=== PATIENT | male | born 1975 | race African-American/Black ===

== ENCOUNTER 2016-11-02 07:57 | Emergency (ER) | payer MEDICAID ==
[2016-11-02 08:05] VITALS: BP 141/80
--- NOTE | 2016-11-02 08:21 | ERNOTE ---
ENT HPI Date of Service: 11/02/16 Presenting Symptoms: dental pain Source: patient Exam Limitations: no limitations - Immun/Allergies/Home Medications Immunizations: IMMUNIZATION HX Immunizations Up to Date Yes History of Influenza Vaccine No Hx Pneumococcal Vaccination No Allergies/Adverse Reactions: Allergies Allergy/AdvReac Type Severity Reaction Status Date / Time No Known Allergies Allergy Verified 11/02/16 08:05 Home Medications: HOME MEDICATIONS Penicillin V Potassium [Pen-Vee K] 500 mg PO Q8H #30 tab 11/02/16 [Last Taken Unknown] Tramadol HCl [Rybix Odt] 50 mg PO TID PRN #10 tab.rapdis 11/02/16 [Last Taken Unknown] - History of Present Illness Narrative: Patient has been having 3 days of left upper molar pain. Posterior molar on the left. This pain has not been relieved by ambasol. No trauma. No fever or vomiting. No trouble breathing or swallowing. Has not been able to get into the dentist for this. No other compaints. Pain can be severe. Severity: Present: mild ENT Location: Present: dental Prearrival Treatment: Present: other - ambasol Modifying Factors - Improves: Reports: nothing Modifying Factors - Worsens: Reports: nothing Associated Symptoms - ENT: Reports: tooth pain. Denies: fever, cough, voice change, sore throat, jaw swelling Review of Systems - Review of Systems Constitutional: Absent: fever ENT: Present: See HPI Respiratory: Absent: shortness of breath Cardiology: Absent: chest pain Gastrointestinal/Abdominal: Absent: vomiting - Patient's Past Medical History Patient History - Medical: GERD Patient History - Cardiac/Respiratory: No pertinent hx Patient History - Cancer: No Hx of Cancer Patient History - Surgical Procedures: No surgical history Patient History - Other: None - Social History Living Situations: home Smoking Status: Never smoker Alcohol Use: none Drug Use: none - Immunizations Immunizations Up to Date: Yes Hx Pneumococcal Vaccination: No History of Influenza Vaccine: No Physical Exam - Physical Exam General Appearance: Present: alert, no apparent distress Eye Exam: Normal inspection: bilateral, PERRL: bilateral Ears, Nose, Throat: Present: other - Patient had completely reproducible tenderness left upper molar. Threre is some milf gingival erythema. Caries at gumline. No abscess I can Identify. no Festus's angina, no ANUG.. 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 Vital Signs: Vital Signs 11/02/16 08:01 Temperature 35.0 C L Pulse Rate 60 Respiratory 16 Rate Blood Pressure 141/80 O2 Sat by Pulse 99 Oximetry - Progress/Reassessment Chief Complaint: Dental Problem Progress Note-Subjective: 11/02/16 08:16 Patient needs to see dentist JACOB. No ANUG or Festus's angina. Stable. ABx, pain meds. Departure Clinical Impression: Pain, dental - Departure Disposition: Home self-care Condition: Stable Instructions: Dental Caries Additional Instructions: See Dentist as soon as possible. No driving with pain medications. Return for fever, trouble breathing or swallowing or if your condition worsens or changes in any way. Prescriptions: Penicillin V Potassium [Pen-Vee K] 500 mg PO Q8H #30 tab Tramadol HCl [Rybix Odt] 50 mg PO TID PRN #10 tab.rapdis PRN Reason: Pain
== END 2016-11-02 08:28 | disposition home or self-care (01) ==
LOC: ER 07:57
DX: K08.89 Other specified disorders of teeth and supporting structures (principal)

== ENCOUNTER 2016-12-09 21:50 | Emergency (ER) | payer MEDICAID ==
--- NOTE | 2016-12-09 22:04 | ERNOTE ---
ENT HPI Date of Service: 12/09/16 Presenting Symptoms: dental pain Source: patient - Immun/Allergies/Home Medications Immunizations: IMMUNIZATION HX Immunizations Up to Date Yes History of Influenza Vaccine No Hx Pneumococcal Vaccination No Allergies/Adverse Reactions: Allergies Allergy/AdvReac Type Severity Reaction Status Date / Time No Known Allergies Allergy Verified 11/02/16 08:05 Home Medications: HOME MEDICATIONS Penicillin V Potassium [Pen-Vee K] 500 mg PO QID #40 tab 12/09/16 [Last Taken Unknown] - History of Present Illness Narrative: LEFT UPPER TOOTH ACHE X 1 WEEK. NO TRAUMA. PT HAS BEEN SEEN HERE FOR THE SAME PAIN IN THE PAST AND DIRECTED TO GET DENTAL CARE WHICH HE HAS NOT DONE. NO FEVERS , NO FACIAL SWELLING. Prior Treament: Reports: similar symptoms before Review of Systems - Review of Systems Constitutional: Present: See HPI EYE: Present: no symptoms reported ENT: Present: See HPI - TOOTH ACHE. Respiratory: Present: no symptoms reported Cardiology: Present: no symptoms reported Gastrointestinal/Abdominal: Present: no symptoms reported Musculoskeletal: Present: no symptoms reported Skin: Present: no symptoms reported Neurological: Present: no symptoms reported Endocrine: Present: no symptoms reported Hematologic/Lymphatic: Present: no symptoms reported Psych: Present: no symptoms reported All Other Systems: All systems neg except as marked - Patient's Past Medical History Patient History - Medical: GERD Patient History - Cardiac/Respiratory: No pertinent hx Patient History - Cancer: No Hx of Cancer Patient History - Surgical Procedures: No surgical history Patient History - Other: None - Social History Living Situations: spouse Abuse History: No History of abuse Psych History: No pertinent hx Alcohol Use: none Drug Use: none - Immunizations Immunizations Up to Date: Yes Hx Pneumococcal Vaccination: No History of Influenza Vaccine: No Physical Exam - Physical Exam General Appearance: Present: wd/wn, alert, mild distress Eye Exam: Normal inspection: bilateral Ears, Nose, Throat: Present: normal except - - HE STATES LEFT UPPER 2ND MOLAR IS TENDER TO PALPATION . THERE IS NO SWELLING OR ERYTHEMA OR DRAINAGE. , normal pharynx. Absent: abnormal TM (R), abnormal TM (L), sinus pain/drainage, pharyngeal erythema, pharyngeal swelling, tonsillar exudate Neck: Present: normal inspection, nontender. Absent: lymphadenopathy (R), lymphadenopathy (L) Neurological Exam: Present: alert, oriented Skin Exam: Present: normal color. Absent: skin rash ED Progress - Vital Signs Vital Signs: Vital Signs 12/09/16 21:55 Temperature 35.7 C L Pulse Rate 72 Respiratory 18 Rate Blood Pressure 184/90 - Progress/Reassessment Chief Complaint: Dental Problem Departure Clinical Impression: Toothache - Departure Disposition: Home Follow Up Needed Condition: Stable Instructions: Dental Care and Dentist Visits Additional Instructions: YOU HAVE RECURRENT TOOTH ACHES AND WILL HAVE TO SEE A DENTIST FOR DEFINITIVE TREATMENT. TRIAL OF PENICILLIN DIRECTED. IBUPROFEN 800 MG EVERY 8 HOURS IF NEEDED. TRIAL OF OIL OF CLOVES TO SORE TOOTH FOR COMFORT. IF UNABLE TO GET INTO A LOCAL DENTIST YOU SHOULD TRY [facility]. AVOID HOT AND COLD FOOD AND DRINKS. RINSE VIGOROUSLY WITH WARM SALT WAGTER FOR 10-15 MINS EVERY 4 HOURS. Prescriptions: Penicillin V Potassium [Pen-Vee K] 500 mg PO QID #40 tab
[2016-12-09 22:44] VITALS: BP 167/78
== END 2016-12-09 22:38 | disposition home or self-care (01) ==
LOC: ER 21:50
DX: K08.89 Other specified disorders of teeth and supporting structures (principal)

== ENCOUNTER 2020-03-15 03:14 | Observation (INO) ==
--- NOTE | 2020-03-15 04:00 | ERNOTE ---
<Lio Cody - Last Filed: 03/15/20 07:57> Abdominal HPI - General Chief Complaint: Abdominal Pain Time Seen by Provider: 03/15/20 03:50 Source: patient Exam Limitations: no limitations - Immun/Allergies/Home Medications Immunizatons: IMMUNIZATION HX Immunizations Up to Date Yes History of Influenza Vaccine No Hx Pneumococcal Vaccination No Allergies/Adverse Reactions: Allergies No Known Allergies Allergy (Verified 03/14/20 15:04) Home Medications: HOME MEDICATIONS Aspirin [Aspirin Enteric Coated] 325 mg PO DAILY 03/14/20 [Last Taken Unknown] Atorvastatin Calcium [Lipitor] 80 mg PO HS 03/14/20 [Last Taken Unknown] Metoprolol Succinate 25 mg PO DAILY 03/14/20 [Last Taken Unknown] Prasugrel HCl [Effient] 10 mg PO DAILY 03/14/20 [Last Taken Unknown] - History of Present Illness Narrative: Patient has had some diffuse abdominal pain since yesterday morning he was seen in this ED and found to have constipation and given mag citrate. He took some mag citrate and did have several bowel movements and went to sleep. He then woke up this morning with right-sided abdominal pain. Timing: getting worse Quality: moderate Activities at Onset: sleep Modifying Factors - (Improves): Present: other Review of Systems - Review of Systems Constitutional: Absent: fever, chills ENT: Absent: ear discharge, nose congestion Respiratory: Absent: shortness of breath, cough Cardiology: Absent: chest pain Gastrointestinal/Abdominal: Present: See HPI. Absent: nausea, vomiting Genitourinary: Absent: frequency, dysuria Musculoskeletal: Absent: back pain Skin: Absent: rash Neurological: Absent: headache, dizziness/light-headedness Endocrine: Absent: excessive sweating Medical History (Last Reviewed 03/15/20 @ 03:59 by Lio Cody DO) Pancreatitis STEMI (ST elevation myocardial infarction) Surgical History: Surgical History (Last Reviewed 03/15/20 @ 03:59 by Lio Cody DO) History of cardiac catheterization History of heart artery stent Family History: Family History (Last Reviewed 03/15/20 @ 03:59 by Lio Cody DO) Other No pertinent family history in first degree relatives Social History: (Last Reviewed 03/15/20 @ 03:59 by Lio Cody DO) Tobacco: Smoking Status: Never smoker Alcohol: alcohol intake: never Substance Use: substance use type: does not use Pets: pets and animals: cat(s) [place]/Christian: [place]/catholic: none Safety: seatbelt use: always Physical Exam - Physical Exam General Appearance: Present: wd/wn, alert, no apparent distress Head Exam: Present: normal inspection, no evidence of injury Neck: Present: normal inspection, nontender Respiratory: Present: no respiratory distress, normal breath sounds, no accessory muscle use, lungs clear Cardiovascular/Chest: Present: regular rate, rhythm, no murmur Gastrointestinal/Abdominal: Present: normal bowel sounds, soft, tenderness - Right mid to upper quadrant. Absent: distended, guarding, rebound Back Exam: Present: normal inspection, normal range of motion Extremity Exam: Present: normal inspection, normal range of motion, no edema Neurological Exam: Present: alert, oriented, normal mood/affect Skin Exam: Present: normal color, warm/dry Lymphatic Exam: Present: no adenopathy Progress - Results and Orders Patient's Lab Results:: I have reviewed the patient's lab results. - Vital Signs Patient's Vital Signs:: I have reviewed the patient's vital signs. Vital Signs: Vital Signs 03/15/20 03:17 Temperature 36.9 C Pulse Rate 66 Respiratory Rate 16 Blood Pressure 186/86 H O2 Sat by Pulse Oximetry 100 - CT/Ultrasound CT/Ultrasound Narrative: CT abdomen pelvis with IV and oral contrast. 1. Mildly distended gallbladder with possible single small gallstone otherwise nothing acute - Progress/Reassessment Chief Complaint: Abdominal Pain Progress Note-Subjective: 03/15/20 08:[address] Walsh he believes we cannot completely rule out acute cholecystitis with the CT scan. He would like a nuclear hepatobiliary scan. I called radiology they state they can get a nuclear hepatobiliary scan this morning. - Transfer of Care Physician Sign Out: Lio Cody Receiving Physician: Navid Casas Pending Results: CT/MRI results, Physician/consult arrival Expected Disposition: Admit Departure Clinical Impression: Acute cholecystitis Abdominal pain Qualifiers: Abdominal location: right upper quadrant Qualified Code(s): R10.11 - Right upper quadrant pain - Departure Disposition: Still a patient Condition: Stable <Navid Casas - Last Filed: 03/15/20 11:21> Abdominal HPI - Immun/Allergies/Home Medications Immunizatons: IMMUNIZATION HX Immunizations Up to Date Yes History of Influenza Vaccine No Hx Pneumococcal Vaccination No Medical History (Last Reviewed 03/15/20 @ 03:59 by Lio Cody DO) Pancreatitis STEMI (ST elevation myocardial infarction) Surgical History: Surgical History (Last Reviewed 03/15/20 @ 03:59 by Lio Cody DO) History of cardiac catheterization History of heart artery stent Family History: Family History (Last Reviewed 03/15/20 @ 03:59 by Lio Cody DO) Other No pertinent family history in first degree relatives Social History: (Last Reviewed 03/15/20 @ 03:59 by Lio Cody DO) Tobacco: Smoking Status: Never smoker Alcohol: alcohol intake: never Substance Use: substance use type: does not use Pets: pets and animals: cat(s) [place]/Christian: [place]/catholic: none Safety: seatbelt use: always Progress - Results and Orders Patient's Lab Results:: I have reviewed the patient's lab results. - Vital Signs Patient's Vital Signs:: I have reviewed the patient's vital signs. Vital Signs: Vital Signs 03/15/20 04:59 03/15/20 05:37 03/15/20 07:17 Pulse Rate 78 84 63 Respiratory Rate 16 16 16 Blood Pressure 128/72 132/83 166/98 H O2 Sat by Pulse Oximetry 98 96 96 03/15/20 10:38 03/15/20 11:07 Pulse Rate 58 L 64 Respiratory Rate 16 15 Blood Pressure 138/78 139/95 H O2 Sat by Pulse Oximetry 96 100 - EKG EKG #1 EKG: NSR EKG read: Interp. by me EKG Comments: NSR rate 73. Non-specific ST/T wave changes wihout SDTEMI. Improved from last EKG. - CT/Ultrasound CT/Ultrasound Narrative: I reviewed Nuclear Medicine study ordered by Dr Cody, positive for acute cholecystitis. - Progress/Reassessment Progress Note-Subjective: 03/15/20 11:20 Dr Walsh saw the patient in the ED and will take him to the OR> He requested EKG which was done. Please see Dr Cody's note for full H&P. 03/15/20 11:20
[2020-03-15 04:17] LABS: Urine Bilirubin Negative (NEGATIVE); Urine Blood Negative /ul (NEGATIVE); Urine Ketone Negative (NEGATIVE); Urine Nitrite Negative (NEGATIVE); Urine Protein Negative (NEGATIVE); Urine Specific Gravity 1.025 SP.GR. (1.005-1.030); Urine Urobilinogen Normal (NORMAL); Urine pH 6.5 pH (5.0-7.0)
[2020-03-15 04:37] LABS: Hematocrit 39.5 % (42.0-52.0); Hemoglobin 11.7 gm/dL (13.5-18.0); Mean Cell Volume 86.6 fl (78-100); Mean Corpuscular Hemoglobin 25.7 pg (27-31); Mean Corpuscular Hgb Conc 29.6 g/dl (32-36); Mean Platelet Volume 9.8 fl (8-11.3); Neutrophil # 8.5 K/mm3 (1.3-6.0); Neutrophil % 73.8 % (42-75.0); Platelet Count 355 K/mm3 (150-450); Red Blood Count 4.56 M/mm3 (4.7-6.0); Red Cell Distribution Width 13.2 % (11.5-14.0); White Blood Count 11.5 K/mm3 (4.0-10.5)
[2020-03-15 04:38] LABS: Urine Appearance Clear (CLEAR); Urine Bacteria None Seen; Urine Color Yellow; Urine RBC None Seen /hpf (0-5); Urine WBC None Seen /hpf (0-5)
[2020-03-15] MEDS ORDERED: DIATRIZOATE MEGLUMINE, SODIUM 30 ML BTL PO ONE (04:47)
[2020-03-15 04:51] LABS: Albumin * 3.6 gm/dl (3.4-5.0); Anion Gap 10.2 mmol/L (6.8-13.8); BUN/Creatinine Ratio 12.8 (9.0-21.6); Bilirubin, Total 0.8 mg/dL (0.0-1.1); Carbon Dioxide 27.9 mmol/L (24-32.6); Potassium 4.1 mmol/L (3.4-4.6); Total Protein 8.1 gm/dL (6.2-8.2)
[2020-03-15] MEDS ORDERED: BUPIVACAINE HCL/EPINEPHRINE/PF 30 ML VIAL IJ PRN (06:00)
[2020-03-15] MEDS ORDERED: CEFOXITIN SODIUM 2 GM in DEXTROSE 5 % IN WATER 100 ML IV PRN ×2 (06:00)
[2020-03-15] MEDS ORDERED: MORPHINE SULFATE 10 MG/ML SYRG IV ONE (09:35)
--- NOTE | 2020-03-15 11:38 | HP ---
Chief Complaint - Chief Complaint Date of Service: 03/15/20 Time of Service: 11:00 Chief Complaint: Abdominal pain History of Present Illness: Patient is a 44-year-old male who presented to the emergency room yesterday with diffuse abdominal pain. White blood cell count and liver function studies were normal. CT scan read by teleradiology showed possible single small stone, over read today was normal. The patient's pain got better after a laxative and he went home. He awoke at about 3 AM with severe pain in the right upper abdomen. It is persisted. He re-presented to the emergency room where white blood cell count is now elevated and he has mild elevation of AST and ALT. A hepatobiliary scan was obtained which shows no visualization of the gallbladder even after morphine administration, compatible with cystic duct obstruction and acute cholecystitis. He has never had this pain before. He does have a history of considerable heartburn for which he takes antacids. This is a little better since he has eliminated spicy food but he still has heartburn several days a week. His recent medical history is remarkable for myocardial infarction in December with placement of a stent at [facility]. He is currently on Effient and a regular aspirin. He has not had a follow-up visit with his civil attorney. He does not have a regular medical provider. He is currently laid off from [employer] Medical History (Last Reviewed 03/15/20 @ 11:32 by Mark Walsh MD) Pancreatitis STEMI (ST elevation myocardial infarction) Surgical History: Surgical History (Last Reviewed 03/15/20 @ 11:32 by Mark Walsh MD) History of cardiac catheterization History of heart artery stent Family History: Family History (Last Reviewed 03/15/20 @ 11:32 by Mark Walsh MD) Other No pertinent family history in first degree relatives Social History: (Last Reviewed 03/15/20 @ 11:32 by Mark Walsh MD) Tobacco: Smoking Status: Never smoker Alcohol: alcohol intake: never Substance Use: substance use type: does not use Pets: pets and animals: cat(s) [place]/Rastafarian: [place]/sabianist: none Safety: seatbelt use: always Review Of Systems (GEN) - Review of Systems Generalized/Overall Review: Absent: Chills, Fever, Diaphoresis EENTM: Present: No Symptoms Reported Respiratory: Present: Other - He has obstructive sleep apnea but does not wear CPAP. Absent: Cough, Shortness of Breath Cardiac: Present: Other - No edema or calf tenderness. He has had no recurrence of his previous precordial chest discomfort since his stent was placed. He has not noted increased bleeding or bruising on the Effient/aspirin. Absent: Chest Pain, Palpitations Abdominal: Present: Abdominal Pain - Right upper quadrant pain and tenderness. Absent: Nausea, Vomiting Genitourinary: Present: No Symptoms Reported, Frequency, Other - He drinks a lot of water. He gets up several times at night to urinate Musculoskeletal: Present: No Symptoms Reported Neurological: Present: No Symptoms Reported Skin: Present: No Symptoms Reported Endocrine: Present: No Symptoms Reported Misc: All systems neg except as marked Immunizations: IMMUNIZATION HX Immunizations Up to Date Yes History of Influenza Vaccine No Hx Pneumococcal Vaccination No Allergies/Adverse Reactions: Allergies Allergy/AdvReac Type Severity Reaction Status Date / Time No Known Allergies Allergy Verified 03/14/20 15:04 Home Medications: HOME MEDICATIONS Aspirin [Aspirin Enteric Coated] 325 mg PO DAILY 03/14/20 [Last Taken Unknown] Atorvastatin Calcium [Lipitor] 80 mg PO HS 03/14/20 [Last Taken Unknown] Metoprolol Succinate 25 mg PO DAILY 03/14/20 [Last Taken Unknown] Prasugrel HCl [Effient] 10 mg PO DAILY 03/14/20 [Last Taken Unknown] Exam - Exam Vital Signs: Vital Signs - Last Taken Temp 36.9 C 03/15/20 03:17 Pulse 64 03/15/20 11:07 Resp 15 03/15/20 11:07 BP 139/95 H 03/15/20 11:07 Pulse Ox 100 03/15/20 11:07 Constitutional: Present: Alert, Oriented x3, Cooperative, Other - He has received morphine for the hepatobiliary scan. 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, normal cerebellar test, no motor/sensory deficits, oriented x 3 Appearance: Present: appropriate appearance, appropriate insight, no memory impairment Eye contact: Present: cooperative, good eye contact, normal speech Thoughts: Present: normal thought pattern Diagnostic Studies: Abnormal Lab Results 03/15/20 03/15/20 Range/Units 04:00 04:30 WBC 11.5 H D (4.0-10.5) K/mm3 RBC 4.56 L (4.7-6.0) M/mm3 Hgb 11.7 L (13.5-18.0) gm/dL Hct 39.5 L (42.0-52.0) % MCH 25.7 L (27-31) pg MCHC 29.6 L (32-36) g/dl Lymphocytes % 15.2 L (20-51) % Neutrophils # 8.5 H (1.3-6.0) K/mm3 Random Glucose 168 H (70-110) mg/dL AST 147 H (0-48) U/L ALT 103 H (19-67) U/L Laboratory Results WBC 11.5 K/mm3 (4.0-10.5) H D 03/15/20 04:00 RBC 4.56 M/mm3 (4.7-6.0) L 03/15/20 04:00 Hgb 11.7 gm/dL (13.5-18.0) L 03/15/20 04:00 Hct 39.5 % (42.0-52.0) L 03/15/20 04:00 MCV 86.6 fl (78-100) 03/15/20 04:00 MCH 25.7 pg (27-31) L 03/15/20 04:00 MCHC 29.6 g/dl (32-36) L 03/15/20 04:00 RDW 13.2 % (11.5-14.0) 03/15/20 04:00 Plt Count 355 K/mm3 (150-450) 03/15/20 04:00 MPV 9.8 fl (8-11.3) 03/15/20 04:00 Immature Gran % (Auto) 0.30 % (0.001-0.429) 03/15/20 04:00 Immature Gran # (Auto) 0.03 K/mm3 (0.000-0.0310) 03/15/20 04:00 Neutrophils % 73.8 % (42-75.0) 03/15/20 04:00 Lymphocytes % 15.2 % (20-51) L 03/15/20 04:00 Monocytes % 7.8 % (0.0-9) 03/15/20 04:00 Eosinophils % 2.3 % (0.0-3.0) 03/15/20 04:00 Basophils % 0.6 % (0.0-1.0) 03/15/20 04:00 Nucleated RBC % 0.0 k/mm3 (0-1) 03/15/20 04:00 Neutrophils # 8.5 K/mm3 (1.3-6.0) H 03/15/20 04:00 Lymphocytes # 1.75 k/mm3 (1.5-3.5) 03/15/20 04:00 Monocytes # 0.9 k/mm3 (0.0-1.0) 03/15/20 04:00 Eosinophils # 0.3 k/mm3 (0.0-0.7) 03/15/20 04:00 Absolute Basophils 0.1 k/mm3 (0.0-0.1) 03/15/20 04:00 Sodium 136 mmol/L (132-142) 03/15/20 04:30 Plasma Sodium 137 mmol/L (130-142) 03/15/20 04:30 Potassium 4.1 mmol/L (3.4-4.6) 03/15/20 04:30 Chloride 102 mmol/L (97-106) 03/15/20 04:30 Carbon Dioxide 27.9 mmol/L (24-32.6) 03/15/20 04:30 Anion Gap 10.2 mmol/L (6.8-13.8) 03/15/20 04:30 BUN 15 mg/dL (6-23) 03/15/20 04:30 Creatinine 1.17 mg/dL (0.4-1.4) 03/15/20 04:30 Est GFR (Non-Af Amer) 88 mL/min (60-130) 03/15/20 04:30 BUN/Creatinine Ratio 12.8 (9.0-21.6) 03/15/20 04:30 Random Glucose 168 mg/dL (70-110) H 03/15/20 04:30 Lactic Acid, Venous 1.7 mmol/L (0.4-2.0) 03/15/20 04:00 Calcium 9.0 mg/dL (7.9-10.9) 03/15/20 04:30 Calcium Adj for Albumin 9.0 mg/dL (8.4-10.2) 03/15/20 04:30 Total Bilirubin 0.8 mg/dL (0.0-1.1) 03/15/20 04:30 AST 147 U/L (0-48) H 03/15/20 04:30 ALT 103 U/L (19-67) H 03/15/20 04:30 Alkaline Phosphatase 108 U/L (50-170) 03/15/20 04:30 Troponin I Less than 0.017 ng/mL (0.00-0.10) 03/15/20 04:30 Total Protein 8.1 gm/dL (6.2-8.2) 03/15/20 04:30 Albumin 3.6 gm/dl (3.4-5.0) 03/15/20 04:30 Amylase 52 U/L (25-115) 03/15/20 04:30 Lipase 105 U/L (73-393) 03/15/20 04:30 Urine Color Yellow 03/15/20 04:00 Urine Appearance Clear (CLEAR) 03/15/20 04:00 Urine pH 6.5 pH (5.0-7.0) 03/15/20 04:00 Ur Specific [place] 1.025 SP.GR. (1.005-1.030) 03/15/20 04:00 Urine Protein Negative mg/dL (NEGATIVE) 03/15/20 04:00 Urine Glucose (UA) Negative mg/dL (NEGATIVE) 03/15/20 04:00 Urine Ketones Negative mg/dL (NEGATIVE) 03/15/20 04:00 Urine Blood Negative /ul (NEGATIVE) 03/15/20 04:00 Urine Nitrate Negative (NEGATIVE) 03/15/20 04:00 Urine Bilirubin Negative mg/dl (NEGATIVE) 03/15/20 04:00 Urine Urobilinogen Normal EU/dl (NORMAL) 03/15/20 04:00 Ur Leukocyte Esterase Negative /ul (NEGATIVE) 03/15/20 04:00 Urine RBC None seen /hpf (0-5) 03/15/20 04:00 Urine WBC None seen /hpf (0-5) 03/15/20 04:00 Ur Epithelial Cells Trace /hpf (0-5) 03/15/20 04:00 Urine Bacteria None seen (NONE) 03/15/20 04:00 Urine Culture Comments No culture indicated 03/15/20 04:00 Hepatobiliary scan shows nonvisualization of the gallbladder compatible with cystic duct obstruction/acute cholecystitis Assessment/Plan - Assessment/Plan (1) Acute cholecystitis Assessment: A pamphlet on gallbladder disease and gallbladder surgery was reviewed with him and given to him. Explained the findings of the hepato-biliary scan to him. The risks and possible complications of cholecystectomy were explained. I explained that the Effient and aspirin can lead to increased bleeding with the procedure. He is now 3 months post stent and his EKG today is normal. After interactive discussion his questions were answered to his apparent sat isfaction and he has given informed consent for cholecystectomy (laparoscopic or open) A rapid COVID-19 test will be performed. SCDs. Chlorhexidine wipes. IV Mefoxin Problem: Acute
[2020-03-15] MEDS ORDERED: MUPIROCIN 22 APPL TUBE TP ONE (12:25)
[2020-03-15] MEDS ORDERED: BUPIVACAINE HCL/EPINEPHRINE/PF 30 ML VIAL IJ ONE (12:25)
[2020-03-15] MEDS: RINGER'S SOLUTION,LACTATED 1,000 ML IV PRN ×3 (13:18→19:20)
--- NOTE | 2020-03-15 13:38 | ANES ---
Anesthesia Pre Procedure Eval Vitals/Labs: Last Vital Signs Temp 36.4 C 03/15/20 12:56 Pulse 66 03/15/20 12:56 Resp 14 03/15/20 12:56 BP 149/74 H 03/15/20 12:56 Pulse Ox 98 03/15/20 12:56 HOME MEDICATIONS Aspirin [Aspirin Enteric Coated] 325 mg PO DAILY 03/14/20 [Last Taken Unknown] Atorvastatin Calcium [Lipitor] 80 mg PO HS 03/14/20 [Last Taken Unknown] Metoprolol Succinate 25 mg PO DAILY 03/14/20 [Last Taken Unknown] Prasugrel HCl [Effient] 10 mg PO DAILY 03/14/20 [Last Taken Unknown] Allergies/Adverse Reactions: Allergies Allergy/AdvReac Type Severity Reaction Status Date / Time No Known Allergies Allergy Verified 03/14/20 15:04 - Planned Procedure Planned Procedure: Lap Penny Medication List Reviewed:: Yes Allergies Verified: Yes Medical History (Last Reviewed 03/15/20 @ 13:35 by Dennis Price CRNA) Pancreatitis STEMI (ST elevation myocardial infarction) Surgical History (Last Reviewed 03/15/20 @ 13:35 by Dennis Price CRNA) History of cardiac catheterization History of heart artery stent Family History (Last Reviewed 03/15/20 @ 13:35 by Dennis Price CRNA) Other No pertinent family history in first degree relatives - Family Anesthesia History Family History:: no untoward family reactions to anesthesia, no familial bleeding tendencies, no family history of clotting disorders, no family history of premature - Airway/Neck/Teeth Within Normal Limits:: Yes Teeth Condition: missing, poor condition Mallampatti Score: 3 - Respiratory Respiratory Physical: lungs clear Smoking Status: Never smoker Discussed smoking cessation including day of surgery: No Sleep Apnea currently treated: No Sleep Apnea by current assessment: Yes Discussed Risks/Treatment of PRO: Yes - Cardiovascular Cardiac History: NC Tolerate Activity: Fair Heart Sounds: S1 & S2, Regular - Gastrointestinal NPO since: 0700 - Anesthesia Assessment and Plan Narrative: Risks of increased cardiac event related to recent NC and geeral anaesthesia discussed. Pt understands risks ASA Class: PS, III, E Anesthesia Type Plan: General ET
[2020-03-15] MEDS ORDERED: LIDOCAINE HCL 20 ML VIAL ONE (13:58)
[2020-03-15] MEDS ORDERED: GLYCOPYRROLATE 0.2 MG/ML VIAL ONE (13:59)
[2020-03-15] MEDS ORDERED: ONDANSETRON HCL/PF 2 MG/ML VIAL ONE (13:59)
[2020-03-15] MEDS ORDERED: PROPOFOL VIAL IV ONE (13:59)
[2020-03-15] MEDS ORDERED: NEOSTIGMINE METHYLSULFATE 1 MG/ML VIAL ONE (13:59)
[2020-03-15] MEDS ORDERED: fentaNYL CITRATE/PF 50 MCG/ML AMPUL ONE (13:59)
[2020-03-15] MEDS ORDERED: PHENYLEPHRINE HCL 10 MG/ML AMPUL ONE (13:59)
[2020-03-15] MEDS ORDERED: ROCURONIUM BROMIDE 10 MG/ML VIAL ONE (14:00)
[2020-03-15] MEDS ORDERED: SUCCINYLCHOLINE CHLORIDE 20 MG/ML VIAL ONE (14:00)
[2020-03-15] MEDS ORDERED: PANTOPRAZOLE SODIUM 40 MG in NORMAL SALINE 100 ML IV PRN (16:56)
[2020-03-15] MEDS ORDERED: oxyCODONE HCL/ACETAMINOPHEN 1 TAB TABLET PO PRN ×2 (16:56→23:45)
[2020-03-15] MEDS ORDERED: ONDANSETRON HCL/PF 2 MG/ML VIAL IV PRN (16:56)
--- NOTE | 2020-03-15 17:04 | ANES ---
Post Anesthesia Assessment - Vital Signs Vitals: Last Vital Signs Temp 35.9 C L 03/15/20 17:00 Pulse 79 03/15/20 17:00 Resp 16 03/15/20 17:00 BP 91/46 03/15/20 17:00 Pulse Ox 93 03/15/20 17:00 Airway Patency: Normal - Mental Status Level Of Consciousness: Awake - Pain Level Pain Score: 0 - N/V Assessment Nausea/Vomiting Presence: None Dehydration:: No
--- NOTE | 2020-03-15 17:04 | ANES ---
Post Anesthesia Discharge - Transfer of Care Transfer of Care handoff given to nurse: Yes - Discharge from PACU Discharge from PACU when meets criteria: Yes - Discharge to ASU Discharge to ASU-no complications/pt stable: Yes
[2020-03-15] MEDS ORDERED: HYDROmorphone HCL 2 MG/ML VIAL ONE (17:19)
[2020-03-15] MEDS ORDERED: HYDROmorphone HCL 2 MG/ML VIAL IV ONE (17:21)
[2020-03-15] MEDS ORDERED: PANTOPRAZOLE SODIUM 40 MG/100 ML PIGGYBACK IV ONE (18:12)
--- NOTE | 2020-03-15 19:15 | OR ---
Operative Report - Dictated Report Narrative: DATE OF OPERATION: 03/15/2020 PREOPERATIVE DIAGNOSIS: Acute cholecystitis POSTOPERATIVE DIAGNOSIS: Acute cholecystitis (pathology pending) OPERATION: Laparoscopic cholecystectomy SURGEON: TIM Walsh MD ANESTHESIA: General endotracheal Dennis Price CRNA INDICATIONS FOR PROCEDURE: The patient is a 44-year-old male who presented to the emergency room last night with abdominal pain. CBC and liver function studies were normal. CT scan of the abdomen and pelvis was performed. The teleradiology read mentioned a possible small gallstone--an over read today was normal exam. The patient was given some pain medication and discharged home. He states he was able to fall asleep however was awakened at about 3 AM today with severe right upper quadrant pain. He returned to the emergency room. His white blood cell count is elevated and AST/ALT are elevated as well. Hepatobiliary scan shows nonvisualization of the gallbladder compatible with cystic duct obstruction and acute cholecystitis. Testing for COVID-19 is negative FINDINGS: Acute cholecystitis (pathology pending) NARRATIVE OF PROCEDURE: The patient was identified preoperatively. Prior to the administration of anesthetic a multidisciplinary timeout observed. With the patient in the supine position, SCDs were placed, 2 g of intravenous Mefoxin administered, and general endotracheal anesthetic administered. The patient's abdomen was prepped with Betadine solution and a generous operating field outlined with 4 sterile towels. The remainder the patient was covered with a sterile disposable drape. An infraumbilical skin incision was made. Dissection was carried along the umbilical stalk until the fascia of the linea alba was encountered. This was incised. The peritoneum was then elevated and incised to allow entry into the abdomen under direct vision. A Hussan cannula was placed, and the abdomen insufflated with CO2. The laparoscopic camera was introduced and the abdomen briefly explored. Those portions of the liver, greater omentum, small and large bowel visualized appeared normal. The gallbladder was not immediately visible. There was a large amount of omental fat. Next under direct vision 3 additional working ports were inserted through separate skin incisions, one in the subxiphoid, one in the right upper quadrant, and one in the right flank. The omentum was swept away from the location of the gallbladder. The gallbladder was seen to be acutely inflamed with edema. The gallbladder was then decompressed with a needle. The puncture site was grasped. The apex of the gallbladder was retracted cephalad. The cystic duct was dissected free for a sufficient distance for confident identification. It was doubly clipped and divided. The cystic artery was identified doubly clipped and divided. There was one area of persistent oozing from the fat adjacent to the cystic duct. A small piece of Surgicel was placed in this location with cessation of bleeding. The gallbladder was then removed from the liver bed by retrograde electrocautery dissection. There was marked edema in the plane between the liver bed and the gallbladder. Prior to severing the last attachments of the gallbladder the liver bed was inspected and found to be hemostatic with no evidence of bile leak. The previously placed clips were seen to be intact. The right upper quadrant was suctioned clean. The area was again confirmed to be completely hemostatic. The last attachments of the gallbladder were divided. It was placed in an Endobag and parked in the right upper quadrant. The smaller working ports were withdrawn under direct vision to ensure entry site hemostasis. The gallbladder was removed in conjunction with the Hussan cannula. The pneumoperitoneum was allowed to escape, and after receiving a correct sponge needle and instrument count attention was turned to closing the abdomen. The fascia and peritoneum at the umbilicus were approximated with interrupted sutures of #1 Vicryl. Subcutaneous space at the umbilicus was obliterated with interrupted sutures of 3-0 chromic. Skin incisions were approximated with interrupted vertical mattress sutures of 4-0 nylon. The operative sites were washed and dried. Dressings of Bactroban ointment and large Band-Aids were applied to the small port sites. The umbilical incision was dressed with Bactroban ointment, 2 x 2, large Band-Aid and Medipore tape. The operative procedure was terminated at this point. The patient tolerated the anesthetic and procedure well without complication. There was no measurable blood loss. The gallbladder was submitted to pathology. 0.5% Marcaine with epinephrine was used for local anesthetic infiltration. The patient was transferred to the recovery room awake, extubated, and in stable condition. He was then transferred back to the ambulatory surgery area. The patient evidenced severe underlying obstructive sleep apnea and required constant stimulation and supplemental O2 to maintain his O2 saturations. He will be placed in an observation bed for CPAP/BiPAP as appropriate overnight.
[2020-03-16] MEDS: RINGER'S SOLUTION,LACTATED 1,000 ML IV PRN (05:24)
--- NOTE | 2020-03-16 08:02 | DS ---
(1) Acute cholecystitis Problem: Acute Date of Discharge:: 03/16/20 Hospital Course: The patient underwent laparoscopic cholecystectomy with the findings of acute cholecystitis. The surgery was uncomplicated however in the immediate postoperative period due to his severe obstructive sleep apnea he required constant stimulation to maintain his SaO2. He was placed in an observation bed for CPAP overnight. By the morning after surgery he had adequate SaO2 on room air without supplementation. He was alert. His pain was incisional only with resolution of his presenting right upper quadrant pain. He was able to tolerate a general diet and was out of bed without assistance. His dressings remained dry. He will be discharged home with instructions not to lift. He is to keep his dressings dry for 48 hours but then may shower and change the dressings daily or as needed. He was given phone numbers to call for questions or concerns. A return office appointment will be made for 03/25/2020 for suture removal. A prescription for Percocet 5/325 mg #20 was transmitted to [facility]. Procedures Performed: see notes below - Laparoscopic cholecystectomy Results and Findings: Lab Pending Results 03/15/20 04:00: WBC 11.5 H D, RBC 4.56 L, Hgb 11.7 L, Hct 39.5 L, MCV 86.6, MCH 25.7 L, MCHC 29.6 L, RDW 13.2, Plt Count 355, MPV 9.8, Immature Gran % (Auto) 0.30, Immature Gran # (Auto) 0.03, Neutrophils % 73.8, Lymphocytes % 15.2 L, Monocytes % 7.8, Eosinophils % 2.3, Basophils % 0.6, Nucleated RBC % 0.0, Neutrophils # 8.5 H, Lymphocytes # 1.75, Monocytes # 0.9, Eosinophils # 0.3, Absolute Basophils 0.1 03/15/20 04:00: Lactic Acid, Venous 1.7 03/15/20 04:00: Urine Color Yellow, Urine Appearance Clear, Urine pH 6.5, Ur Specific [place] 1.025, Urine Protein Negative, Urine Glucose (UA) Negative, Urine Ketones Negative, Urine Blood Negative, Urine Nitrate Negative, Urine Bilirubin Negative, Urine Urobilinogen Normal, Ur Leukocyte Esterase Negative, Urine RBC None seen, Urine WBC None seen, Ur Epithelial Cells Trace, Urine Bacteria None seen, Urine Culture Comments No culture indicated 03/15/20 04:30: Sodium 136, Plasma Sodium 137, Potassium 4.1, Chloride 102, Carbon Dioxide 27.9, Anion Gap 10.2, BUN 15, Creatinine 1.17, Est GFR (Non-Af Amer) 88, BUN/Creatinine Ratio 12.8, Random Glucose 168 H, Calcium 9.0, Calcium Adj for Albumin 9.0, Total Bilirubin 0.8, AST 147 H, ALT 103 H, Alkaline Phosphatase 108, Total Protein 8.1, Albumin 3.6, Amylase 52, Lipase 105 03/15/20 04:30: Troponin I Less than 0.017 03/15/20 10:45: SARS-CoV-2 (PCR) Not detected Discharge Location: Home Disposition: Home self-care Condition: Good Discharge Activity: Activity as tolerated, No Lifting Discharge Diet: General/regular food Problem Oriented Discharge Instructions to Patient/Family: Laparoscopic Cholecystectomy, Care After Additional Patient Instructions (free text): Please follow up with Dr. Walsh's nurse on Saturday03/25/2020. The office will call you with a time. Please follow up with Dr. Walsh on Saturday03/28/2020 1:[address] Walsh's office at [phone] if you have any questions or concerns. Prescriptions (Any new or edited meds): oxyCODONE HCL/ACETAMINOPHEN [Percocet 5 MG/325 MG] 2 tab PO Q6H PRN #30 tab PRN Reason: Pain Transmission Status: Sent to [facility] Complete Home Medications List: Complete Home Medication List: Aspirin [Aspirin Enteric Coated] 325 mg PO DAILY 03/14/20 Atorvastatin Calcium [Lipitor] 80 mg PO HS 03/14/20 Metoprolol Succinate 25 mg PO DAILY 03/14/20 Prasugrel HCl [Effient] 10 mg PO DAILY 03/14/20 oxyCODONE HCL/ACETAMINOPHEN [Percocet 5 MG/325 MG] 2 tab PO Q6H PRN #30 tab 03/16/20
[2020-03-16 13:55] VITALS: BP 134/76
== END 2020-03-16 14:45 | disposition home or self-care (01) ==
LOC: ER 03:14 → SUR 12:20 → MS 12:20 → SUR 12:40
PROVIDERS: ADMIT Surgery; ATTEND Surgery
DX: K81.0 Acute cholecystitis; E66.9 Obesity, unspecified; G47.33 Obstructive sleep apnea (adult) (pediatric)
CPT/HCPCS: 36415; 74177; 78226; 80053; 81001; 82150; 83605; 83690; 84484; 85025; 88304; 88888; 93005; 94660; 96365; 96375; 99285; A9537; C9803; G0378; J2405; Q9963; Q9967

== ENCOUNTER 2021-02-02 17:05 | Inpatient (IN) ==
[2021-02-02] MEDS ORDERED: HYDROmorphone HCL 1 MG/ML DISP.SYRIN IV ONE (18:10)
[2021-02-02] MEDS ORDERED: NORMAL SALINE 1,000 ML IV ONE ×2 (18:10→19:41)
[2021-02-02] MEDS ORDERED: ONDANSETRON HCL/PF 2 MG/ML VIAL IV ONE (18:10)
--- NOTE | 2021-02-02 18:20 | ERNOTE ---
Date of Service: 02/02/21 Time Seen by Provider: 02/02/21 17:58 Stated Complaint: cough, abd pain Presenting Symptoms:: other - abdominal pain Source: patient Exam Limitations: no limitations Immunizations: IMMUNIZATION HX Immunizations Up to Date Yes History of Influenza Vaccine Yes Hx Pneumococcal Vaccination No Allergies/Adverse Reactions: Allergies No Known Allergies Allergy (Verified 02/02/21 17:34) Home Medications: HOME MEDICATIONS Aspirin [Aspirin Enteric Coated] 325 mg PO DAILY 03/14/20 [Last Taken 03/14/20] - History of Present Ilness Narrative: This patient is a 45-year-old male who is here complaining of abdominal pain. He said it began on Saturday, 3 days ago. The pain is mostly in the epigastric region but hurts all over the abdomen. He says is not cramping but and aching. The pain has been constant. The pain is worse with eating and drinking. He has had no fever, nausea, vomiting or diarrhea. He is not constipated. He denies any urinary symptoms. He has had a prior cholecystectomy. He has had pancreatitis about 4 years ago. That episode was much worse. He denies alcohol use. Review of Systems - Narrative Narrative: He has had respiratory symptoms for the past week. - Review of Systems Constitutional: Absent: fever EYE: Absent: vision changes ENT: Present: nose congestion, nasal drainage, sore throat. Absent: ear pain Respiratory: Present: cough. Absent: shortness of breath Cardiology: Present: other - He had an MA about a year ago. He had stents.. Absent: chest pain, palpitations, syncope Gastrointestinal/Abdominal: Present: abdominal pain, eating less, drinking less. Absent: nausea, vomiting, diarrhea, constipation Genitourinary: Absent: frequency, pain, dysuria, hematuria Musculoskeletal: Absent: back pain, neck pain, joint pain Skin: Absent: rash Neurological: Absent: headache, dizziness/light-headedness Endocrine: Present: other - No diabetes Hematologic/Lymphatic: Present: other - No active bleeding Psych: Present: no symptoms reported Medical History (Last Reviewed 02/02/21 @ 18:18 by Hipolito Dias MD) GERD (gastroesophageal reflux disease) Onset Date: Unknown Obstructive sleep apnea Onset Date: Unknown Pancreatitis Onset Date: 09/26/17 STEMI (ST elevation myocardial infarction) Onset Date: 12/14/19 Surgical History: Surgical History (Last Reviewed 02/02/21 @ 18:18 by Hipolito Dias MD) History of cardiac catheterization Onset Date: 12/14/19 History of heart artery stent Onset Date: 12/14/19 History of laparoscopic cholecystectomy Onset Date: 03/15/20 Family History: Family History (Last Reviewed 02/02/21 @ 18:18 by Hipolito Dias MD) Father Migraines Mother , age 39-brain aneurysm No problems noted. 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 Head Exam: Present: normal inspection, no evidence of injury Eye Exam: Normal inspection: bilateral Ears, Nose, Throat: Present: normal ENT inspection Neck: Present: normal inspection, supple Respiratory: Present: no respiratory distress, normal breath sounds, no accessory muscle use, lungs clear Cardiovascular/Chest: Present: regular rate, rhythm, no murmur Gastrointestinal/Abdominal: Present: normal bowel sounds, nondistended, soft, no organomegaly, tenderness - Epigastric and right upper quadrant.. Absent: guarding, rebound Back Exam: Present: normal inspection Extremity Exam: Present: normal inspection, non-tender, no edema Neurological Exam: Present: alert, oriented, normal mood/affect, no motor/senso ry deficits Skin Exam: Present: normal color, warm/dry Progress - Results and Orders Patient's Lab Results:: I have reviewed the patient's lab results. Results and Orders: Laboratory Tests 02/02/21 02/02/21 02/02/21 17:38 18:20 18:20 WBC 10.5 RBC 4.40 L Hgb 11.1 L Hct 36.6 L MCV 83.2 MCH 25.2 L MCHC 30.3 L RDW 12.4 Plt Count 463 H MPV 10.0 Immature Gran % (Auto) 0.40 Immature Gran # (Auto) 0.04 H Neutrophils % 70.7 Lymphocytes % 17.6 L Monocytes % 8.9 Eosinophils % 1.7 Basophils % 0.7 Nucleated RBC % 0.0 Neutrophils # 7.4 H Lymphocytes # 1.85 Monocytes # 0.9 Eosinophils # 0.2 Absolute Basophils 0.1 Sodium 137 Plasma Sodium 137 Potassium 4.2 Chloride 101 Carbon Dioxide 26.5 Anion Gap 13.7 BUN 11 Creatinine 1.01 Est GFR (Non-Af Amer) 103 BUN/Creatinine Ratio 10.9 Random Glucose 115 H Calcium 8.8 Calcium Adj for Albumin 8.9 Total Bilirubin 0.9 AST 23 ALT 36 Alkaline Phosphatase 91 Total Protein 8.1 Albumin 3.5 Lipase 644 H Urine Color Urine Appearance Urine pH Ur Specific [place] Urine Protein Urine Glucose (UA) Urine Ketones Urine Blood Urine Nitrate Urine Bilirubin Urine Urobilinogen Ur Leukocyte Esterase Urine RBC Urine WBC Ur Epithelial Cells Urine Bacteria Urine Culture Comments Group A Strep Rapid Negative 02/02/21 18:30 WBC RBC Hgb Hct MCV MCH MCHC RDW Plt Count MPV Immature Gran % (Auto) Immature Gran # (Auto) Neutrophils % Lymphocytes % Monocytes % Eosinophils % Basophils % Nucleated RBC % Neutrophils # Lymphocytes # Monocytes # Eosinophils # Absolute Basophils Sodium Plasma Sodium Potassium Chloride Carbon Dioxide Anion Gap BUN Creatinine Est GFR (Non-Af Amer) BUN/Creatinine Ratio Random Glucose Calcium Calcium Adj for Albumin Total Bilirubin AST ALT Alkaline Phosphatase Total Protein Albumin Lipase Urine Color [place] Urine Appearance Clear Urine pH 5.5 Ur Specific [place] >=1.030 Urine Protein 15 H Urine Glucose (UA) Negative Urine Ketones 5 Urine Blood Negative Urine Nitrate Negative Urine Bilirubin 1 H Urine Urobilinogen 2.0 H Ur Leukocyte Esterase Negative Urine RBC None seen Urine WBC 0-5 Ur Epithelial Cells 0-5 Urine Bacteria Trace Urine Culture Comments No culture indicated Group A Strep Rapid - Vital Signs Patient's Vital Signs:: I have reviewed the patient's vital signs. Vital Signs: Vital Signs 02/02/21 17:31 Temperature 36.1 C Pulse Rate 80 Respiratory Rate 16 Blood Pressure 151/95 H O2 Sat by Pulse Oximetry 96 - CT/Ultrasound CT/Ultrasound Narrative: CT Abdomen/Pelvis W/C *~ Exam Date: 02/02/2021 18:54 Ordering Physician: Hipolito Dias MD CT Abdomen/Pelvis W/C * INDICATION: Upper abdominal pain. H/O pancreatitis. TECHNIQUE: CT of the abdomen and pelvis with Isovue-370 IV contrast including delayed images. Coronal reformatted images were performed. Individualized dose optimization technique was used for the performed procedure including automated exposure control, adjustment of the mA and/or kV according to patient size and/or the iterative reconstruction technique. COMPARISON: CT abdomen pelvis dated 03/15/2020. FINDINGS: No free air or fluid collection. Lower chest: The visualized lower lungs are aerated. No pleural or pericardial effusion. ABDOMEN: Liver: The liver enhances homogeneously without focal mass. Gallbladder and biliary: Cholecystectomy. Normal caliber bile ducts. Spleen: Normal spleen. Pancreas: Subtle peripancreatic inflammatory changes. No walled off fluid collection. No nonenhancing pancreas. Adrenal glands: Normal adrenal glands. Kidneys and ureters: Normal kidneys and ureters. GI tract: The stomach is decompressed and poorly evaluated. Small bowel and colon are of normal caliber. Sigmoid diverticulosis without acute diverticulitis. Normal appendix. Vascular structures: Normal caliber abdominal aorta. The celiac artery, SMA, bilateral renal arteries, and NATALIA are patent. Portal and mesenteric venous structures are patent. Lymph nodes: No lymphadenopathy in the abdomen or pelvis. PELVIS: Genitourinary system: Normal bladder. Normal prostate gland and seminal vesicles. SKELETAL STRUCTURES AND SOFT TISSUES: No fracture or destructive lesions in the visualized skeleton. IMPRESSION: 1. Mild peripancreatic inflammatory changes suggesting acute pancreatitis. No walled off fluid collection. No nonenhancing pancreas. 2. Cholecystectomy. Normal caliber bile ducts. 3. Sigmoid diverticulosis without acute diverticulitis. Electronically signed by Ashtyn Fernandez D.O.. - Progress/Reassessment Chief Complaint: Cough Plan - Plan Plan: The patient has a mild elevation of his lipase and some mild peripancreatic inflammation. I spoke the patient about this and he is willing to stay in the hospital. I spoke with Dr. Dominguez who agrees to observe him. Departure Clinical Impression: Pancreatitis - Departure Disposition: Still a patient Condition: Stable
[2021-02-02] MEDS: HYDROmorphone HCL 2 MG/ML VIAL IV PRN ×2 (18:29→21:30)
[2021-02-02 18:35] LABS: Hematocrit 36.6 % (42.0-52.0); Hemoglobin 11.1 gm/dL (13.5-18.0); Mean Cell Volume 83.2 fl (78-100); Mean Corpuscular Hemoglobin 25.2 pg (27-31); Mean Corpuscular Hgb Conc 30.3 g/dl (32-36); Neutrophil # 7.4 K/mm3 (1.3-6.0); Neutrophil % 70.7 % (42-75.0); Platelet Count 463 K/mm3 (150-450); Red Cell Distribution Width 12.4 % (11.5-14.0); White Blood Count 10.5 K/mm3 (4.0-10.5)
[2021-02-02 18:46] LABS: Urine Bilirubin 1 mg/dl (NEGATIVE); Urine Blood Negative /ul (NEGATIVE); Urine Ketone 5 mg/dL (NEGATIVE); Urine Nitrite Negative (NEGATIVE); Urine Protein 15 mg/dL (NEGATIVE); Urine Specific Gravity >=1.030 SP.GR. (1.005-1.030); Urine pH 5.5 pH (5.0-7.0)
[2021-02-02 18:48] LABS: Albumin * 3.5 gm/dl (3.4-5.0); Anion Gap 13.7 mmol/L (6.8-13.8); BUN/Creatinine Ratio 10.9 (9.0-21.6); Bilirubin, Total 0.9 mg/dL (0.0-1.1); Ca. Corrected For Albumin 8.9 mg/dL (8.4-10.2); Calcium * 8.8 mg/dL (7.9-10.9); Carbon Dioxide 26.5 mmol/L (24-32.6); Potassium 4.2 mmol/L (3.4-4.6); Total Protein 8.1 gm/dL (6.2-8.2)
[2021-02-02 19:02] LABS: Urine Appearance Clear (CLEAR); Urine Color Amber; Urine RBC None Seen /hpf (0-5); Urine WBC 0-5 /hpf (0-5)
[2021-02-02 19:03] LABS: Urine Bacteria TRACE
[2021-02-02] MEDS: NORMAL SALINE 1,000 ML IV PRN (22:13)
[2021-02-02] MEDS: KETOROLAC TROMETHAMINE 30 MG/ML VIAL IV SCH (23:00)
[2021-02-03] MEDS: KETOROLAC TROMETHAMINE 30 MG/ML VIAL IV SCH ×4 (04:24→22:32)
[2021-02-03] MEDS: NORMAL SALINE 1,000 ML IV PRN ×3 (05:51→22:38)
[2021-02-03 09:22] LABS: Hematocrit 34.1 % (42.0-52.0); Hemoglobin 10.1 gm/dL (13.5-18.0); Mean Corpuscular Hemoglobin 25.2 pg (27-31); Mean Corpuscular Hgb Conc 29.6 g/dl (32-36); Mean Platelet Volume 9.6 fl (8-11.3); Neutrophil # 6.2 K/mm3 (1.3-6.0); Neutrophil % 67.7 % (42-75.0); Platelet Count 408 K/mm3 (150-450); Red Blood Count 4.01 M/mm3 (4.7-6.0); Red Cell Distribution Width 12.3 % (11.5-14.0); White Blood Count 9.1 K/mm3 (4.0-10.5)
[2021-02-03 09:47] LABS: Anion Gap 9.6 mmol/L (6.8-13.8); BUN/Creatinine Ratio 11.5 (9.0-21.6); Bilirubin, Total 0.8 mg/dL (0.0-1.1); Ca. Corrected For Albumin 9.1 mg/dL (8.4-10.2); Calcium * 8.6 mg/dL (7.9-10.9); Carbon Dioxide 27.7 mmol/L (24-32.6); Potassium 4.3 mmol/L (3.4-4.6); Total Protein 7.2 gm/dL (6.2-8.2)
--- NOTE | 2021-02-03 14:34 | HP ---
Chief Complaint - Chief Complaint Date of Service: 02/03/21 Time of Service: 09:30 Chief Complaint: Abdominal pain History of Present Illness: Hal is a 45 yo male presenting to the [facility] ER with abdominal pain. He reports the symptoms had just started that day but were pretty severe with nausea. Evaluation in the ER showed elevated lipase of [address] of abdomen showing acute pancreatitis. He admits to eating a lot of fast food recently. He denies alcohol. He has had his gall bladder removed previously. He was started on fluids and pain medication in the ER. He currently reports feeling better and his pain is 2/10. He reports 4 years ago he had acute pancreatitis but no problems since. Medical History (Last Reviewed 02/02/21 @ 21:04 by Lucas Petit RN) GERD (gastroesophageal reflux disease) Onset Date: Unknown Obstructive sleep apnea Onset Date: Unknown Pancreatitis Onset Date: 09/26/17 STEMI (ST elevation myocardial infarction) Onset Date: 12/14/19 Surgical History: Surgical History (Last Reviewed 02/02/21 @ 21:04 by Lucas Petit RN) History of cardiac catheterization Onset Date: 12/14/19 History of heart artery stent Onset Date: 12/14/19 History of laparoscopic cholecystectomy Onset Date: 03/15/20 Family History: Family History (Last Reviewed 02/02/21 @ 18:18 by Hipolito Dias MD) Father Migraines Mother , age 39-brain aneurysm No problems noted. Sister Diabetes Grandfather Diabetes paternal and maternal Grandmother Diabetes paternal and maternal Social History: (Last Updated 02/02/21 @ 21:05 by Lucas Petit RN) Social History: Marital status: household members: spouse number of children: 2 current occupational status: employed current occupation: [employer] Service: Yes branch: [employer] Tobacco: Smoking Status: Never smoker Alcohol: alcohol intake: former Substance Use: substance use type: does not use Dietary Habits: caffeine: Yes Pets: pets and animals: cat(s) [place]: [place]/muslim: none Safety: seatbelt use: always Personal Safety: victim of physical abuse: No victim of emotional abuse: No Review Of Systems (GEN) - Review of Systems Generalized/Overall Review: Absent: Weakness, Chills, Fever EENTM: Present: No Symptoms Reported Respiratory: Absent: Cough, Shortness of Breath Cardiac: Absent: Chest Pain, Edema Abdominal: Present: Nausea, Abdominal Pain. Absent: Vomiting, Hematemesis, Constipation, Diarrhea, Melena Genitourinary: Absent: Burning, Frequency Musculoskeletal: Absent: Joint Pain, Back Pain Neurological: Absent: Headache, Anxiety Skin: Absent: Dryness, Lumps Immunizations: IMMUNIZATION HX Immunizations Up to Date Yes History of Influenza Vaccine Yes Hx Pneumococcal Vaccination No Allergies/Adverse Reactions: Allergies Allergy/AdvReac Type Severity Reaction Status Date / Time No Known Allergies Allergy Verified 02/02/21 17:34 Home Medications: HOME MEDICATIONS Aspirin [Aspirin Enteric Coated] 325 mg PO DAILY 03/14/20 [Last Taken 03/14/20] Exam - Exam Vital Signs: Vital Signs - Last Taken Temp 36.3 C 02/03/21 10:00 Pulse 77 02/03/21 10:00 Resp 19 02/03/21 10:00 BP 140/73 H 02/03/21 10:00 Pulse Ox 98 02/03/21 10:00 Constitutional: Present: Alert, Oriented x3, Cooperative, No distress ENT Exam: Present: hearing grossly normal Eye Exam: bilateral eye: normal inspection Respiratory: Present: lungs clear, normal breath sounds, no respiratory distress Cardiovascular/Chest: Present: regular rate, rhythm, no edema, no murmur Peripheral Pulses: radial (R): 2+, radial (L): 2+ Abdomen: Present: Normal bowel sounds, soft, nontender, nondistended, no rebound tenderness Skin Exam: Present: normal color, warm/dry, no cyanosis Appearance: Present: appropriate appearance, appropriate insight Eye contact: Present: cooperative, good eye contact, normal speech Thoughts: Present: normal thought pattern, no apparent hallucination Diagnostic Studies: Abnormal Lab Results 02/02/21 02/02/21 02/02/21 Range/Units 18:20 18:20 18:30 RBC 4.40 L (4.7-6.0) M/mm3 Hgb 11.1 L (13.5-18.0) gm/dL Hct 36.6 L (42.0-52.0) % MCH 25.2 L (27-31) pg MCHC 30.3 L (32-36) g/dl Plt Count 463 H (150-450) K/mm3 Immature Gran # (Auto) 0.04 H (0.000-0.0310) K/mm3 Lymphocytes % 17.6 L (20-51) % Monocytes % (0.0-9) % Neutrophils # 7.4 H (1.3-6.0) K/mm3 Est GFR (Non-Af Amer) (60-130) mL/min Random Glucose 115 H (70-110) mg/dL Albumin (3.4-5.0) gm/dl Lipase 644 H (73-393) U/L Urine Protein 15 H (NEGATIVE) mg/dL Urine Bilirubin 1 H (NEGATIVE) mg/dl Urine Urobilinogen 2.0 H (NORMAL) EU/dl 02/03/21 02/03/21 Range/Units 09:15 09:15 RBC 4.01 L (4.7-6.0) M/mm3 Hgb 10.1 L (13.5-18.0) gm/dL Hct 34.1 L (42.0-52.0) % MCH 25.2 L (27-31) pg MCHC 29.6 L (32-36) g/dl Plt Count (150-450) K/mm3 Immature Gran # (Auto) (0.000-0.0310) K/mm3 Lymphocytes % (20-51) % Monocytes % 10.0 H (0.0-9) % Neutrophils # 6.2 H (1.3-6.0) K/mm3 Est GFR (Non-Af Amer) 139 H D (60-130) mL/min Random Glucose (70-110) mg/dL Albumin 3.0 L (3.4-5.0) gm/dl Lipase 717 H (73-393) U/L Urine Protein (NEGATIVE) mg/dL Urine Bilirubin (NEGATIVE) mg/dl Urine Urobilinogen (NORMAL) EU/dl Laboratory Results WBC 9.1 K/mm3 (4.0-10.5) 02/03/21 09:15 RBC 4.01 M/mm3 (4.7-6.0) L 02/03/21 09:15 Hgb 10.1 gm/dL (13.5-18.0) L 02/03/21 09:15 Hct 34.1 % (42.0-52.0) L 02/03/21 09:15 MCV 85.0 fl (78-100) 02/03/21 09:15 MCH 25.2 pg (27-31) L 02/03/21 09:15 MCHC 29.6 g/dl (32-36) L 02/03/21 09:15 RDW 12.3 % (11.5-14.0) 02/03/21 09:15 Plt Count 408 K/mm3 (150-450) 02/03/21 09:15 MPV 9.6 fl (8-11.3) 02/03/21 09:15 Immature Gran % (Auto) 0.30 % (0.001-0.429) 02/03/21 09:15 Immature Gran # (Auto) 0.03 K/mm3 (0.000-0.0310) 02/03/21 09:15 Neutrophils % 67.7 % (42-75.0) 02/03/21 09:15 Lymphocytes % 20.2 % (20-51) 02/03/21 09:15 Monocytes % 10.0 % (0.0-9) H 02/03/21 09:15 Eosinophils % 1.3 % (0.0-3.0) 02/03/21 09:15 Basophils % 0.5 % (0.0-1.0) 02/03/21 09:15 Nucleated RBC % 0.0 k/mm3 (0-1) 02/03/21 09:15 Neutrophils # 6.2 K/mm3 (1.3-6.0) H 02/03/21 09:15 Lymphocytes # 1.84 k/mm3 (1.5-3.5) 02/03/21 09:15 Monocytes # 0.9 k/mm3 (0.0-1.0) 02/03/21 09:15 Eosinophils # 0.1 k/mm3 (0.0-0.7) 02/03/21 09:15 Absolute Basophils 0.1 k/mm3 (0.0-0.1) 02/03/21 09:15 Sodium 137 mmol/L (132-142) 02/03/21 09:15 Plasma Sodium 137 mmol/L (130-142) 02/03/21 09:15 Potassium 4.3 mmol/L (3.4-4.6) 02/03/21 09:15 Chloride 104 mmol/L (97-106) 02/03/21 09:15 Carbon Dioxide 27.7 mmol/L (24-32.6) 02/03/21 09:15 Anion Gap 9.6 mmol/L (6.8-13.8) 02/03/21 09:15 BUN 9 mg/dL (6-23) 02/03/21 09:15 Creatinine 0.78 mg/dL (0.4-1.4) 02/03/21 09:15 Est GFR (Non-Af Amer) 139 mL/min (60-130) H D 02/03/21 09:15 BUN/Creatinine Ratio 11.5 (9.0-21.6) 02/03/21 09:15 Random Glucose 86 mg/dL (70-110) 02/03/21 09:15 Calcium 8.6 mg/dL (7.9-10.9) 02/03/21 09:15 Calcium Adj for Albumin 9.1 mg/dL (8.4-10.2) 02/03/21 09:15 Total Bilirubin 0.8 mg/dL (0.0-1.1) 02/03/21 09:15 AST 21 U/L (0-48) 02/03/21 09:15 ALT 30 U/L (19-67) 02/03/21 09:15 Alkaline Phosphatase 82 U/L (50-170) 02/03/21 09:15 Total Protein 7.2 gm/dL (6.2-8.2) 02/03/21 09:15 Albumin 3.0 gm/dl (3.4-5.0) L 02/03/21 09:15 Lipase 717 U/L (73-393) H 02/03/21 09:15 Urine Color Chelsie 02/02/21 18:30 Urine Appearance Clear (CLEAR) 02/02/21 18:30 Urine pH 5.5 pH (5.0-7.0) 02/02/21 18:30 Ur Specific [place] >=1.030 SP.GR. (1.005-1.030) 02/02/21 18:30 Urine Protein 15 mg/dL (NEGATIVE) H 02/02/21 18:30 Urine Glucose (UA) Negative mg/dL (NEGATIVE) 02/02/21 18:30 Urine Ketones 5 mg/dL (NEGATIVE) 02/02/21 18:30 Urine Blood Negative /ul (NEGATIVE) 02/02/21 18:30 Urine Nitrate Negative (NEGATIVE) 02/02/21 18:30 Urine Bilirubin 1 mg/dl (NEGATIVE) H 02/02/21 18:30 Urine Urobilinogen 2.0 EU/dl (NORMAL) H 02/02/21 18:30 Ur Leukocyte Esterase Negative /ul (NEGATIVE) 02/02/21 18:30 Urine RBC None seen /hpf (0-5) 02/02/21 18:30 Urine WBC 0-5 /hpf (0-5) 02/02/21 18:30 Ur Epithelial Cells 0-5 /hpf (0-5) 02/02/21 18:30 Urine Bacteria Trace (NONE) 02/02/21 18:30 Urine Culture Comments No culture indicated 02/02/21 18:30 SARS-CoV-2 (PCR) Not detected (NotDetected) 02/02/21 19:45 Group A Strep Rapid Negative (NEGATIVE) 02/02/21 17:38 Assessment/Plan - Narrative Narrative: Hal is a 45 yo male with acute pancreatitis. Suspect secondary to fatty diet recently. He has a prior episode 4 years ago. He has no gall bladder and denies alcohol. Will admit to observation with IV fluids and pain control. Will make NPO and monitor enzymes and pain. If pain is improved and enzymes trend down may advance diet as tolerated. He is still having pain t his morning although it is improved. Will keep NPO for now and advance later today if pain resolves. - Assessment/Plan (1) Acute pancreatitis Problem: Acute Qualifiers: Pancreatitis type: unspecified pancreatitis type
[2021-02-03] MEDS: HYDROmorphone HCL 1 MG/ML DISP.SYRIN IV PRN (22:31)
[2021-02-04] MEDS: HYDROmorphone HCL 1 MG/ML DISP.SYRIN IV PRN (04:08)
[2021-02-04] MEDS: KETOROLAC TROMETHAMINE 30 MG/ML VIAL IV SCH ×3 (04:11→15:55)
[2021-02-04] MEDS: NORMAL SALINE 1,000 ML IV PRN ×3 (06:38→22:45)
[2021-02-04] MEDS ORDERED: ACETAMINOPHEN 500 MG TABLET PO PRN (08:20)
[2021-02-04 09:04] LABS: Hematocrit 32.7 % (42.0-52.0); Hemoglobin 9.9 gm/dL (13.5-18.0); Mean Cell Volume 84.3 fl (78-100); Mean Corpuscular Hemoglobin 25.5 pg (27-31); Mean Corpuscular Hgb Conc 30.3 g/dl (32-36); Mean Platelet Volume 10.1 fl (8-11.3); Neutrophil # 7.7 K/mm3 (1.3-6.0); Neutrophil % 73.4 % (42-75.0); Platelet Count 429 K/mm3 (150-450); Red Blood Count 3.88 M/mm3 (4.7-6.0); Red Cell Distribution Width 12.2 % (11.5-14.0); White Blood Count 10.5 K/mm3 (4.0-10.5)
[2021-02-04 09:31] LABS: Albumin * 2.9 gm/dl (3.4-5.0); Anion Gap 13.5 mmol/L (6.8-13.8); BUN/Creatinine Ratio 11.8 (9.0-21.6); Bilirubin, Total 0.9 mg/dL (0.0-1.1); Ca. Corrected For Albumin 9.6 mg/dL (8.4-10.2); Carbon Dioxide 25.9 mmol/L (24-32.6); Potassium 4.4 mmol/L (3.4-4.6); Total Protein 6.8 gm/dL (6.2-8.2)
[2021-02-04] MEDS: HYDROcodone/ACETAMINOPHEN 1 EACH TABLET PO PRN ×3 (10:01→23:53)
--- NOTE | 2021-02-04 22:53 | PN ---
Subjective - Date and Time Seen Date: 02/04/21 Time: 09:00 Subjective Narrative: Abdominal pain rated as 2. No nausea. He feels hungry. Lipase stable. Objective - Vitals Vitals: Last Vital Signs Temp 37 C 02/04/21 19:37 Pulse 67 02/04/21 19:37 Resp 20 02/04/21 19:37 BP 154/87 H 02/04/21 19:37 Pulse Ox 96 02/04/21 19:37 - Abnormal Lab Findings Abnormal Lab Findings: Abnormal Lab Results 02/04/21 02/04/21 Range/Units 08:51 08:51 RBC 3.88 L (4.7-6.0) M/mm3 Hgb 9.9 L (13.5-18.0) gm/dL Hct 32.7 L (42.0-52.0) % MCH 25.5 L (27-31) pg MCHC 30.3 L (32-36) g/dl Lymphocytes % 16.0 L (20-51) % Neutrophils # 7.7 H (1.3-6.0) K/mm3 Albumin 2.9 L (3.4-5.0) gm/dl Lipase 1641 H (73-393) U/L - Exam Constitutional: Present: Alert, Oriented x3, Cooperative ENT Exam: Present: hearing grossly normal Respiratory: Present: lungs clear, normal breath sounds Cardiovascular/Chest: Present: regular rate, rhythm, no murmur Abdomen: Present: Normal bowel sounds, soft, nontender, nondistended, no rebound tenderness Skin Exam: Present: normal color, warm/dry, no cyanosis Assessment/Plan Plan Narrative: Pancreatitis pain improved this morning. He was tried on clear liquid diet but pain worsened. Will not advance diet further at this time. Will recheck enzymes in the morning. He has failed outpatient trial and will be changed from observation to inpatient as he is still having pain and lipase still elevated. - Problems/Diagnosis (1) Acute pancreatitis Problem: Acute Qualifiers: Pancreatitis type: unspecified pancreatitis type
[2021-02-05] MEDS: HYDROcodone/ACETAMINOPHEN 1 EACH TABLET PO PRN ×5 (03:22→19:33)
[2021-02-05] MEDS: NORMAL SALINE 1,000 ML IV PRN ×2 (06:46→23:10)
[2021-02-05 10:45] LABS: Hematocrit 33.6 % (42.0-52.0); Hemoglobin 10.1 gm/dL (13.5-18.0); Mean Cell Volume 83.4 fl (78-100); Mean Corpuscular Hemoglobin 25.1 pg (27-31); Mean Corpuscular Hgb Conc 30.1 g/dl (32-36); Mean Platelet Volume 10.4 fl (8-11.3); Neutrophil % 79.2 % (42-75.0); Platelet Count 437 K/mm3 (150-450); Red Blood Count 4.03 M/mm3 (4.7-6.0); Red Cell Distribution Width 12.2 % (11.5-14.0); White Blood Count 11.4 K/mm3 (4.0-10.5)
[2021-02-05 11:06] LABS: Albumin * 2.9 gm/dl (3.4-5.0); Anion Gap 13.3 mmol/L (6.8-13.8); BUN/Creatinine Ratio 6.9 (9.0-21.6); Bilirubin, Total 0.7 mg/dL (0.0-1.1); Ca. Corrected For Albumin 9.2 mg/dL (8.4-10.2); Calcium * 8.6 mg/dL (7.9-10.9); Carbon Dioxide 25.6 mmol/L (24-32.6); Potassium 3.9 mmol/L (3.4-4.6); Total Protein 6.8 gm/dL (6.2-8.2)
--- NOTE | 2021-02-05 19:50 | PN ---
Subjective - Date and Time Seen Date: 02/05/21 Time: 09:15 Subjective Narrative: He reports worsening abdominal pain. Lipase elevated to 1800 today. He has failed trial of clear liquid diet. He reports abdominal pain currently 05/16. Objective - Vitals Vitals: Last Vital Signs Temp 36.6 C 02/05/21 18:32 Pulse 70 02/05/21 18:32 Resp 20 02/05/21 18:32 BP 143/89 H 02/05/21 18:32 Pulse Ox 94 02/05/21 18:32 - Abnormal Lab Findings Abnormal Lab Findings: Abnormal Lab Results 02/05/21 02/05/21 Range/Units 09:59 09:59 WBC 11.4 H (4.0-10.5) K/mm3 RBC 4.03 L (4.7-6.0) M/mm3 Hgb 10.1 L (13.5-18.0) gm/dL Hct 33.6 L (42.0-52.0) % MCH 25.1 L (27-31) pg MCHC 30.1 L (32-36) g/dl Immature Gran # (Auto) 0.04 H (0.000-0.0310) K/mm3 Neutrophils % 79.2 H (42-75.0) % Lymphocytes % 11.2 L (20-51) % Neutrophils # 9.0 H (1.3-6.0) K/mm3 Lymphocytes # 1.28 L (1.5-3.5) k/mm3 BUN/Creatinine Ratio 6.9 L (9.0-21.6) Albumin 2.9 L (3.4-5.0) gm/dl Lipase 1803 H (73-393) U/L - Exam Constitutional: Present: Alert, Oriented x3, Cooperative ENT Exam: Present: hearing grossly normal Respiratory: Present: lungs clear, normal breath sounds, no respiratory distress Cardiovascular/Chest: Present: regular rate, rhythm, no murmur Abdomen: Present: Normal bowel sounds, soft, tender - epigastric Skin Exam: Present: normal color, warm/dry, no cyanosis Appearance: Present: appropriate appearance, appropriate insight Assessment/Plan Plan Narrative: Failed clear liquid diet trial. Will make NPO. Continue fluids and monitor labs. If abdominal pain does not improve tomorrow may need to repeat CT to make sure there isn't an abscess forming. - Problems/Diagnosis (1) Acute pancreatitis Problem: Acute Qualifiers: Pancreatitis type: unspecified pancreatitis type
[2021-02-05] MEDS: oxyCODONE HCL/ACETAMINOPHEN 1 TAB TABLET PO PRN (23:08)
[2021-02-06] MEDS: oxyCODONE HCL/ACETAMINOPHEN 1 TAB TABLET PO PRN ×4 (03:26→17:14)
[2021-02-06 07:05] LABS: Albumin * 2.8 gm/dl (3.4-5.0); Anion Gap 15.9 mmol/L (6.8-13.8); Bilirubin, Total 0.9 mg/dL (0.0-1.1); Ca. Corrected For Albumin 9.3 mg/dL (8.4-10.2); Calcium * 8.7 mg/dL (7.9-10.9); Carbon Dioxide 23.1 mmol/L (24-32.6); Total Protein 7.6 gm/dL (6.2-8.2)
[2021-02-06] MEDS: NORMAL SALINE 1,000 ML IV PRN (08:35)
[2021-02-06 08:44] LABS: Hemoglobin 10.1 gm/dL (13.5-18.0); Mean Cell Volume 84.2 fl (78-100); Mean Corpuscular Hgb Conc 29.7 g/dl (32-36); Mean Platelet Volume 10.7 fl (8-11.3); Neutrophil # 10.6 K/mm3 (1.3-6.0); Neutrophil % 81.3 % (42-75.0); Platelet Count 468 K/mm3 (150-450); Red Blood Count 4.04 M/mm3 (4.7-6.0); Red Cell Distribution Width 12.1 % (11.5-14.0); White Blood Count 13.1 K/mm3 (4.0-10.5)
[2021-02-06] MEDS ORDERED: DEXTROSE 50%-WATER 50 ML SYRG IV ONE (09:46)
[2021-02-06] MEDS ORDERED: DIATRIZOATE MEGLUMINE, SODIUM 30 ML BTL PO ONE (11:00)
[2021-02-06] MEDS: DEXTROSE 5%-NORMAL SALINE 1,000 ML IV PRN ×2 (12:56→20:11)
[2021-02-06] MEDS: HYDROmorphone HCL 1 MG/ML DISP.SYRIN IV PRN ×2 (19:16→23:40)
--- NOTE | 2021-02-06 20:32 | PN ---
Subjective - Date and Time Seen Date: 02/06/21 Time: 07:40 Subjective Narrative: He reports feeling better. Pain is 1/10. He feels a little hungry. Lipase improved from 1800 to 800 after being NPO again. Objective - Vitals Vitals: Last Vital Signs Temp 37 C 02/06/21 18:08 Pulse 95 02/06/21 18:08 Resp 20 02/06/21 18:08 BP 157/80 H 02/06/21 18:08 Pulse Ox 95 02/06/21 18:08 - Abnormal Lab Findings Abnormal Lab Findings: Abnormal Lab Results 02/06/21 02/06/21 Range/Units 06:18 06:18 WBC 13.1 H (4.0-10.5) K/mm3 RBC 4.04 L (4.7-6.0) M/mm3 Hgb 10.1 L (13.5-18.0) gm/dL Hct 34.0 L (42.0-52.0) % MCH 25.0 L (27-31) pg MCHC 29.7 L (32-36) g/dl Plt Count 468 H (150-450) K/mm3 Immature Gran # (Auto) 0.05 H (0.000-0.0310) K/mm3 Neutrophils % 81.3 H (42-75.0) % Lymphocytes % 10.5 L (20-51) % Neutrophils # 10.6 H (1.3-6.0) K/mm3 Lymphocytes # 1.37 L (1.5-3.5) k/mm3 Carbon Dioxide 23.1 L (24-32.6) mmol/L Anion Gap 15.9 H (6.8-13.8) mmol/L BUN/Creatinine Ratio 7.0 L (9.0-21.6) Random Glucose 64 L (70-110) mg/dL Albumin 2.8 L (3.4-5.0) gm/dl Lipase 870 H (73-393) U/L - Exam Constitutional: Present: Alert, Oriented x3, Cooperative, Morbidly obese ENT Exam: Present: hearing grossly normal Respiratory: Present: lungs clear, normal breath sounds Cardiovascular/Chest: Present: regular rate, rhythm, no murmur Abdomen: Present: Normal bowel sounds, soft, nontender, nondistended Skin Exam: Present: normal color, warm/dry, no cyanosis Assessment/Plan Plan Narrative: Lipase has improved from 1800 to 800. Pain improved to 1/10 this morning. However pain worsened around noon. Repeat CT was done due to worsening pain and slow to improve pancreatitis. Will evaluate for abscess. No abscess or necrosis on CT. Will continue as NPO. He failed diet advancement previously. Will wait until pain is gone and enzymes are significantly improved before advancing diet again. - Problems/Diagnosis (1) Acute pancreatitis Problem: Acute Qualifiers: Pancreatitis type: unspecified pancreatitis type (2) Morbid obesity with BMI of 40.0-44.9, adult Problem: Acute
[2021-02-07] MEDS: DEXTROSE 5%-NORMAL SALINE 1,000 ML IV PRN ×3 (03:20→20:05)
[2021-02-07] MEDS: HYDROmorphone HCL 1 MG/ML DISP.SYRIN IV PRN ×5 (03:55→21:57)
[2021-02-07 06:36] LABS: Hematocrit 32.7 % (42.0-52.0); Hemoglobin 9.9 gm/dL (13.5-18.0); Mean Cell Volume 82.6 fl (78-100); Mean Corpuscular Hgb Conc 30.3 g/dl (32-36); Neutrophil # 9.2 K/mm3 (1.3-6.0); Platelet Count 427 K/mm3 (150-450); Red Blood Count 3.96 M/mm3 (4.7-6.0); Red Cell Distribution Width 12.1 % (11.5-14.0); White Blood Count 11.2 K/mm3 (4.0-10.5)
[2021-02-07 06:50] LABS: Albumin * 2.6 gm/dl (3.4-5.0); Anion Gap 12.9 mmol/L (6.8-13.8); BUN/Creatinine Ratio 4.9 (9.0-21.6); Bilirubin, Total 0.6 mg/dL (0.0-1.1); Ca. Corrected For Albumin 9.7 mg/dL (8.4-10.2); Calcium * 8.9 mg/dL (7.9-10.9); Carbon Dioxide 25.9 mmol/L (24-32.6); Potassium 3.8 mmol/L (3.4-4.6); Total Protein 7.4 gm/dL (6.2-8.2)
[2021-02-07] MEDS: oxyCODONE HCL/ACETAMINOPHEN 1 TAB TABLET PO PRN ×2 (10:54→18:37)
--- NOTE | 2021-02-07 23:46 | PN ---
Subjective - Date and Time Seen Date: 02/07/21 Time: 08:30 Subjective Narrative: Abdominal pain 05/16. No appetite. Lipase improved to 667. CT reviewed from yesterday showed no abscess or necrosis. No fever or chills. Objective - Vitals Vitals: Last Vital Signs Temp 36.4 C 02/07/21 18:18 Pulse 71 02/07/21 18:18 Resp 20 02/07/21 18:18 BP 149/73 H 02/07/21 18:18 Pulse Ox 97 02/07/21 18:18 - Abnormal Lab Findings Abnormal Lab Findings: Abnormal Lab Results 02/07/21 02/07/21 Range/Units 06:10 06:10 WBC 11.2 H (4.0-10.5) K/mm3 RBC 3.96 L (4.7-6.0) M/mm3 Hgb 9.9 L (13.5-18.0) gm/dL Hct 32.7 L (42.0-52.0) % MCH 25.0 L (27-31) pg MCHC 30.3 L (32-36) g/dl Neutrophils % 82.0 H (42-75.0) % Lymphocytes % 9.5 L (20-51) % Neutrophils # 9.2 H (1.3-6.0) K/mm3 Lymphocytes # 1.07 L (1.5-3.5) k/mm3 BUN 4 L (6-23) mg/dL Est GFR (Non-Af Amer) 131 H (60-130) mL/min BUN/Creatinine Ratio 4.9 L (9.0-21.6) Random Glucose 111 H D (70-110) mg/dL Albumin 2.6 L (3.4-5.0) gm/dl Lipase 667 H (73-393) U/L - Exam Constitutional: Present: Alert, Oriented x3, Cooperative ENT Exam: Present: hearing grossly normal Respiratory: Present: lungs clear, normal breath sounds, no respiratory distress Cardiovascular/Chest: Present: regular rate, rhythm, no murmur Abdomen: Present: Normal bowel sounds, soft, tender Skin Exam: Present: normal color, warm/dry, no cyanosis Appearance: Present: appropriate appearance, appropriate insight Eye contact: Present: cooperative, good eye contact, normal speech Assessment/Plan Plan Narrative: Lipase improved today but still elevated. Abdominal pain worse today. No fever, chills, or other new symptoms. Will keep NPO due to worsening abdominal pain. May need to consider TPN if unable to advance diet tomorrow. - Problems/Diagnosis (1) Acute pancreatitis Problem: Acute Qualifiers: Pancreatitis type: unspecified pancreatitis type (2) Morbid obesity with BMI of 40.0-44.9, adult Problem: Acute
[2021-02-08] MEDS: oxyCODONE HCL/ACETAMINOPHEN 1 TAB TABLET PO PRN ×4 (00:06→17:21)
[2021-02-08] MEDS: HYDROmorphone HCL 1 MG/ML DISP.SYRIN IV PRN ×5 (02:27→19:48)
[2021-02-08] MEDS: DEXTROSE 5%-NORMAL SALINE 1,000 ML IV PRN ×3 (05:07→23:59)
[2021-02-08 06:35] LABS: Hematocrit 32.1 % (42.0-52.0); Hemoglobin 9.9 gm/dL (13.5-18.0); Mean Cell Volume 83.2 fl (78-100); Mean Corpuscular Hemoglobin 25.6 pg (27-31); Mean Corpuscular Hgb Conc 30.8 g/dl (32-36); Mean Platelet Volume 10.5 fl (8-11.3); Neutrophil # 7.5 K/mm3 (1.3-6.0); Neutrophil % 75.3 % (42-75.0); Platelet Count 428 K/mm3 (150-450); Red Blood Count 3.86 M/mm3 (4.7-6.0); Red Cell Distribution Width 12.2 % (11.5-14.0)
[2021-02-08 06:54] LABS: Albumin * 2.6 gm/dl (3.4-5.0); Anion Gap 7.4 mmol/L (6.8-13.8); BUN/Creatinine Ratio 4.6 (9.0-21.6); Bilirubin, Total 0.8 mg/dL (0.0-1.1); Ca. Corrected For Albumin 9.6 mg/dL (8.4-10.2); Calcium * 8.8 mg/dL (7.9-10.9); Carbon Dioxide 30.2 mmol/L (24-32.6); Potassium 3.6 mmol/L (3.4-4.6); Total Protein 7.6 gm/dL (6.2-8.2)
[2021-02-08] MEDS ORDERED: POTASSIUM PHOS,M-BASIC-D-BASIC 18 MM, ELECTROLYTE SOLUTION,INJ 20 ML, MULTIVIT INFUSN,A... IV SCH ×6 (12:45)
--- NOTE | 2021-02-08 15:51 | ANES ---
Anesthesia Procedure Note Procedure Note: ANESTHESIA PROCEDURE NOTE Date of procedure: 02/08/2021. Time of procedure: 1345. Performed by: Alan Harley CRNA Supply Chain Tech: None . Preprocedure diagnosis: Pancreatitis. Need for central line placement for TPN infusion.. Post procedure diagnosis: Same. Procedure: PICC line insertion Indications: Need for central line placement. Findings: Patient's left antecubital fossa was prepped and draped sterilely. A 22-gauge Angiocath IV was started. Guidewire was inserted without difficulty. PICC line was inserted over guidewire with resistance met at about 20 to 25 cm. Unable to advance PICC line beyond that point. PICC line was removed and a pressure dressing was applied. Ultrasound was utilized in an attempt to locate median cubital vein in the right antecubital fossa without success. Ultrasound was then utilized in attempt to locate the right basilic vein without success. Ultrasound was then utilized in the patient's left antecubital fossa. A small vein was located and cannulated with a 22-gauge Angiocath. Again the guidewire was inserted without difficulty. Attempted PICC line placement resulted in resistance at a similar distance to the first attempt. PICC line was removed. And pressure dressing was applied. Procedure aborted. RN notified. EBL: Minimal. Fluids: N/A. Specimen: N/A. Post procedure condition: The patient tolerated the procedure well. No complications were noted. Thank you for this consultation Alan Harley CRNA
--- NOTE | 2021-02-08 18:06 | PN ---
Subjective - Date and Time Seen Date: 02/08/21 Time: 12:30 Subjective Narrative: Abdominal pain a little improved today. Rated 4/10. No appetite. Lipase a little lower at 600. No fever, chills, nausea, or vomiting. Objective - Vitals Vitals: Last Vital Signs Temp 37.1 C 02/08/21 15:40 Pulse 70 02/08/21 15:40 Resp 18 02/08/21 15:40 BP 176/93 H 02/08/21 15:40 Pulse Ox 99 02/08/21 15:40 - Abnormal Lab Findings Abnormal Lab Findings: Abnormal Lab Results 02/08/21 02/08/21 Range/Units 06:20 06:20 RBC 3.86 L (4.7-6.0) M/mm3 Hgb 9.9 L (13.5-18.0) gm/dL Hct 32.1 L (42.0-52.0) % MCH 25.6 L (27-31) pg MCHC 30.8 L (32-36) g/dl Immature Gran # (Auto) 0.04 H (0.000-0.0310) K/mm3 Neutrophils % 75.3 H (42-75.0) % Lymphocytes % 13.2 L (20-51) % Monocytes % 9.9 H (0.0-9) % Neutrophils # 7.5 H (1.3-6.0) K/mm3 Lymphocytes # 1.32 L (1.5-3.5) k/mm3 BUN 4 L (6-23) mg/dL BUN/Creatinine Ratio 4.6 L (9.0-21.6) Random Glucose 124 H (70-110) mg/dL Albumin 2.6 L (3.4-5.0) gm/dl Lipase 614 H (73-393) U/L - Exam Constitutional: Present: Alert, Oriented x3, Cooperative ENT Exam: Present: hearing grossly normal Respiratory: Present: lungs clear, normal breath sounds, no respiratory distress Cardiovascular/Chest: Present: regular rate, rhythm, no murmur Abdomen: Present: Normal bowel sounds, soft, nondistended, tender Extremity: Present: normal inspection Skin Exam: Present: normal color, warm/dry, no cyanosis Neurologic: Present: alert, normal mood/affect, oriented x 3 Eye contact: Present: cooperative, good eye contact, normal speech Thoughts: Present: normal thought pattern, no apparent hallucination Assessment/Plan Plan Narrative: Slightly improved based on labs and pain but still present and above normal. It has been 4 days of no significant nutrition. Will order PICC line and TPN. Continue NPO status until abdominal pain is resolved and lipase normalizes. Blood pressure elevated. May be secondary to pain, but will start amlodipine 5mg daily. - Problems/Diagnosis (1) Acute pancreatitis Problem: Acute Qualifiers: Pancreatitis type: unspecified pancreatitis type (2) Morbid obesity with BMI of 40.0-44.9, adult Problem: Acute
[2021-02-08] MEDS ORDERED: amLODIPine BESYLATE 5 MG TABLET ONE (19:38)
[2021-02-08] MEDS: AMLODIPINE BESYLATE 2.5 MG TABLET PO SCH (19:47)
[2021-02-09] MEDS: HYDROmorphone HCL 1 MG/ML DISP.SYRIN IV PRN ×4 (00:01→13:33)
[2021-02-09] MEDS: oxyCODONE HCL/ACETAMINOPHEN 1 TAB TABLET PO PRN ×2 (01:26→07:11)
[2021-02-09] MEDS: DEXTROSE 5%-NORMAL SALINE 1,000 ML IV PRN (08:02)
[2021-02-09] MEDS: AMLODIPINE BESYLATE 2.5 MG TABLET PO SCH (08:03)
[2021-02-09 10:08] LABS: Hematocrit 31.3 % (42.0-52.0); Hemoglobin 9.6 gm/dL (13.5-18.0); Mean Cell Volume 82.2 fl (78-100); Mean Corpuscular Hemoglobin 25.2 pg (27-31); Mean Corpuscular Hgb Conc 30.7 g/dl (32-36); Mean Platelet Volume 9.9 fl (8-11.3); Neutrophil # 6.7 K/mm3 (1.3-6.0); Neutrophil % 75.3 % (42-75.0); Platelet Count 426 K/mm3 (150-450); Red Blood Count 3.81 M/mm3 (4.7-6.0); Red Cell Distribution Width 12.3 % (11.5-14.0); White Blood Count 8.9 K/mm3 (4.0-10.5)
[2021-02-09 10:27] LABS: Albumin * 2.6 gm/dl (3.4-5.0); Anion Gap 10.1 mmol/L (6.8-13.8); BUN/Creatinine Ratio 5.4 (9.0-21.6); Bilirubin, Total 0.8 mg/dL (0.0-1.1); Ca. Corrected For Albumin 9.6 mg/dL (8.4-10.2); Calcium * 8.8 mg/dL (7.9-10.9); Carbon Dioxide 28.4 mmol/L (24-32.6); Potassium 3.5 mmol/L (3.4-4.6); Total Protein 7.4 gm/dL (6.2-8.2)
[2021-02-09] MEDS: POLYETHYLENE GLYCOL 3350 17 GM PACKET PO SCH (13:27)
[2021-02-09] MEDS: SENNOSIDES/DOCUSATE SODIUM 1 TAB TABLET PO SCH ×2 (13:27→20:46)
--- NOTE | 2021-02-09 23:07 | PN ---
Subjective - Date and Time Seen Date: 02/09/21 Time: 12:30 Subjective Narrative: Lipase normal today. Reports abdominal pain but has not had BM for 4 days. He is unsure if abdomen is sore because of constipation or pancreas. No fever, chills, nausea, or vomiting. He feels very hungry. Objective - Vitals Vitals: Last Vital Signs Temp 36.5 C 02/09/21 18:27 Pulse 71 02/09/21 18:27 Resp 20 02/09/21 18:27 BP 157/91 H 02/09/21 18:27 Pulse Ox 97 02/09/21 18:27 - Abnormal Lab Findings Abnormal Lab Findings: Abnormal Lab Results 02/09/21 02/09/21 Range/Units 10:00 10:00 RBC 3.81 L (4.7-6.0) M/mm3 Hgb 9.6 L (13.5-18.0) gm/dL Hct 31.3 L (42.0-52.0) % MCH 25.2 L (27-31) pg MCHC 30.7 L (32-36) g/dl Neutrophils % 75.3 H (42-75.0) % Lymphocytes % 13.7 L (20-51) % Monocytes % 9.1 H (0.0-9) % Neutrophils # 6.7 H (1.3-6.0) K/mm3 Lymphocytes # 1.22 L (1.5-3.5) k/mm3 BUN 4 L (6-23) mg/dL Est GFR (Non-Af Amer) 148 H D (60-130) mL/min BUN/Creatinine Ratio 5.4 L (9.0-21.6) Random Glucose 143 H (70-110) mg/dL Albumin 2.6 L (3.4-5.0) gm/dl - Exam Constitutional: Present: Alert, Oriented x3, Cooperative Respiratory: Present: lungs clear, normal breath sounds, no respiratory distress Cardiovascular/Chest: Present: regular rate, rhythm, no murmur Abdomen: Present: tender - mild diffuse, distended, hypoactive Skin Exam: Present: normal color, warm/dry, no cyanosis Neurologic: Present: alert, normal mood/affect, oriented x 3 Appearance: Present: appropriate appearance, appropriate insight Eye contact: Present: cooperative, good eye contact, normal speech Assessment/Plan Plan Narrative: Unable to get PICC line yesterday and start TPN. Lipase normal today. Abdominal pain present but may be from constipation. He has not had a BM in 4 days. Will give miralax and senna/colace. Will stop hydromorphone. Will advance diet to clears due to lipase normal. Monitor enzymes. - Problems/Diagnosis (1) Acute pancreatitis Problem: Acute Qualifiers: Pancreatitis type: unspecified pancreatitis type (2) Morbid obesity with BMI of 40.0-44.9, adult Problem: Acute
[2021-02-10 06:39] LABS: Hematocrit 35.1 % (42.0-52.0); Hemoglobin 10.6 gm/dL (13.5-18.0); Mean Cell Volume 82.2 fl (78-100); Mean Corpuscular Hemoglobin 24.8 pg (27-31); Mean Corpuscular Hgb Conc 30.2 g/dl (32-36); Neutrophil % 76.9 % (42-75.0); Platelet Count 544 K/mm3 (150-450); Red Blood Count 4.27 M/mm3 (4.7-6.0); Red Cell Distribution Width 12.4 % (11.5-14.0); White Blood Count 9.1 K/mm3 (4.0-10.5)
[2021-02-10 06:56] LABS: Anion Gap 13.2 mmol/L (6.8-13.8); BUN/Creatinine Ratio 6.7 (9.0-21.6); Bilirubin, Total 0.8 mg/dL (0.0-1.1); Ca. Corrected For Albumin 9.9 mg/dL (8.4-10.2); Calcium * 9.4 mg/dL (7.9-10.9); Carbon Dioxide 27.7 mmol/L (24-32.6); Potassium 3.9 mmol/L (3.4-4.6); Total Protein 8.3 gm/dL (6.2-8.2)
[2021-02-10] MEDS ORDERED: amLODIPine BESYLATE 5 MG TABLET PO SCH (09:00)
[2021-02-10] MEDS: POLYETHYLENE GLYCOL 3350 17 GM PACKET PO SCH (09:29)
[2021-02-10] MEDS: SENNOSIDES/DOCUSATE SODIUM 1 TAB TABLET PO SCH (09:29)
[2021-02-10 14:45] VITALS: BP 146/91
--- NOTE | 2021-02-10 15:03 | DS ---
(1) Acute pancreatitis Problem: Resolved Qualifiers: Pancreatitis type: unspecified pancreatitis type (2) Morbid obesity with BMI of 40.0-44.9, adult Problem: Acute (3) Hypertension Problem: Acute Qualifiers: Hypertension type: unspecified Qualified Code(s): I10 - Essential (primary) hypertension Date of Discharge:: 02/10/21 Hospital Course: Hal is a 45 yo male admitted for acute pancreatitis. He had abdominal pain, loss of appetite, elevated lipase, and CT findings of acute pancreatitis without abscess. He was treated with GI rest and fluids. He gradually had resolution of pain and was tried on clear liquids but the pain returned and lipase increased. He was made NPO again and continued on fluids. He developed mild hypoglycemia of 60 and fluids were adjusted. Due to his slow improvement a PICC line was attempted to begin TPN but PICC line was unsuccessful. The plan was to get a central line and start TPN the following day but his lipase normalized. He had abdominal discomfort but it was thought to be secondary to constipation as he had not had a bowel movement in 4 days. He was given miralax and senna with colace and he began having bowel movements and pain improved. Diet was advanced to clears and he tolerated this well and lipase remained normal. He was trialed on low fat diet and did well. He will be discharged to home. Blood pressure was elevated during hospital course and was given Amlodipine 5mg daily. Unsure if this is chronic or elevated acutely due to pain. Recommend follow up as outpatient to see if medications will need to be continued. Will not continue amlodipine at this time. Procedures Performed: none Results and Findings: Lab Pending Results 02/02/21 17:38: Group A Strep Rapid Negative 02/02/21 18:20: WBC 10.5, RBC 4.40 L, Hgb 11.1 L, Hct 36.6 L, MCV 83.2, MCH 25.2 L, MCHC 30.3 L, RDW 12.4, Plt Count 463 H, MPV 10.0, Immature Gran % (Auto) 0.40, Immature Gran # (Auto) 0.04 H, Neutrophils % 70.7, Lymphocytes % 17.6 L, Monocytes % 8.9, Eosinophils % 1.7, Basophils % 0.7, Nucleated RBC % 0.0, Neutrophils # 7.4 H, Lymphocytes # 1.85, Monocytes # 0.9, Eosinophils # 0.2, Absolute Basophils 0.1 02/02/21 18:20: Sodium 137, Plasma Sodium 137, Potassium 4.2, Chloride 101, Carbon Dioxide 26.5, Anion Gap 13.7, BUN 11, Creatinine 1.01, Est GFR (Non-Af Amer) 103, BUN/Creatinine Ratio 10.9, Random Glucose 115 H, Calcium 8.8, Calcium Adj for Albumin 8.9, Total Bilirubin 0.9, AST 23, ALT 36, Alkaline Phosphatase 91, Total Protein 8.1, Albumin 3.5, Lipase 644 H 02/02/21 18:30: Urine Color Chelsie, Urine Appearance Clear, Urine pH 5.5, Ur Specific [place] >=1.030, Urine Protein 15 H, Urine Glucose (UA) Negative, Urine Ketones 5, Urine Blood Negative, Urine Nitrate Negative, Urine Bilirubin 1 H, Urine Urobilinogen 2.0 H, Ur Leukocyte Esterase Negative, Urine RBC None seen, Urine WBC 0-5, Ur Epithelial Cells 0-5, Urine Bacteria Trace, Urine Culture Comments No culture indicated 02/02/21 19:45: SARS-CoV-2 (PCR) Not detected 02/03/21 09:15: WBC 9.1, RBC 4.01 L, Hgb 10.1 L, Hct 34.1 L, MCV 85.0, MCH 25.2 L, MCHC 29.6 L, RDW 12.3, Plt Count 408, MPV 9.6, Immature Gran % (Auto) 0.30, Immature Gran # (Auto) 0.03, Neutrophils % 67.7, Lymphocytes % 20.2, Monocytes % 10.0 H, Eosinophils % 1.3, Basophils % 0.5, Nucleated RBC % 0.0, Neutrophils # 6.2 H, Lymphocytes # 1.84, Monocytes # 0.9, Eosinophils # 0.1, Absolute Basophils 0.1 02/03/21 09:15: Sodium 137, Plasma Sodium 137, Potassium 4.3, Chloride 104, Carbon Dioxide 27.7, Anion Gap 9.6, BUN 9, Creatinine 0.78, Est GFR (Non-Af Amer) 139 H D, BUN/Creatinine Ratio 11.5, Random Glucose 86, Calcium 8.6, Calcium Adj for Albumin 9.1, Total Bilirubin 0.8, AST 21, ALT 30, Alkaline Phosphatase 82, Total Protein 7.2, Albumin 3.0 L, Lipase 717 H 02/04/21 08:51: WBC 10.5, RBC 3.88 L, Hgb 9.9 L, Hct 32.7 L, MCV 84.3, MCH 25.5 L, MCHC 30.3 L, RDW 12.2, Plt Count 429, MPV 10.1, Immature Gran % (Auto) 0.30, Immature Gran # (Auto) 0.03, Neutrophils % 73.4, Lymphocytes % 16.0 L, Monocytes % 8.9, Eosinophils % 0.9, Basophils % 0.5, Nucleated RBC % 0.0, Neutrophils # 7.7 H, Lymphocytes # 1.69, Monocytes # 0.9, Eosinophils # 0.1, Absolute Basophils 0.1 02/04/21 08:51: Sodium 137, Plasma Sodium 137, Potassium 4.4, Chloride 102, Ca rbon Dioxide 25.9, Anion Gap 13.5, BUN 10, Creatinine 0.85, Est GFR (Non-Af Amer) 126, BUN/Creatinine Ratio 11.8, Random Glucose 71, Calcium 9.0, Calcium Adj for Albumin 9.6, Total Bilirubin 0.9, AST 18, ALT 28, Alkaline Phosphatase 79, Total Protein 6.8, Albumin 2.9 L, Lipase 1641 H 02/05/21 09:59: WBC 11.4 H, RBC 4.03 L, Hgb 10.1 L, Hct 33.6 L, MCV 83.4, MCH 25.1 L, MCHC 30.1 L, RDW 12.2, Plt Count 437, MPV 10.4, Immature Gran % (Auto) 0.30, Immature Gran # (Auto) 0.04 H, Neutrophils % 79.2 H, Lymphocytes % 11.2 L, Monocytes % 8.2, Eosinophils % 0.8, Basophils % 0.3, Nucleated RBC % 0.0, Neutrophils # 9.0 H, Lymphocytes # 1.28 L, Monocytes # 0.9, Eosinophils # 0.1, Absolute Basophils 0.0 02/05/21 09:59: Sodium 137, Plasma Sodium 137, Potassium 3.9, Chloride 102, Carbon Dioxide 25.6, Anion Gap 13.3, BUN 6, Creatinine 0.87, Est GFR (Non-Af Amer) 123, BUN/Creatinine Ratio 6.9 L, Random Glucose 75, Calcium 8.6, Calcium Adj for Albumin 9.2, Total Bilirubin 0.7, AST 17, ALT 20, Alkaline Phosphatase 77, Total Protein 6.8, Albumin 2.9 L, Lipase 1803 H 02/06/21 06:18: WBC 13.1 H, RBC 4.04 L, Hgb 10.1 L, Hct 34.0 L, MCV 84.2, MCH 25.0 L, MCHC 29.7 L, RDW 12.1, Plt Count 468 H, MPV 10.7, Immature Gran % (Auto) 0.40, Immature Gran # (Auto) 0.05 H, Neutrophils % 81.3 H, Lymphocytes % 10.5 L, Monocytes % 7.0, Eosinophils % 0.5, Basophils % 0.3, Nucleated RBC % 0.0, Neutrophils # 10.6 H, Lymphocytes # 1.37 L, Monocytes # 0.9, Eosinophils # 0.1, Absolute Basophils 0.0 02/06/21 06:18: Sodium 136, Plasma Sodium 135, Potassium 4.0, Chloride 101, Carbon Dioxide 23.1 L, Anion Gap 15.9 H, BUN 6, Creatinine 0.86, Est GFR (Non-Af Amer) 124, BUN/Creatinine Ratio 7.0 L, Random Glucose 64 L, Calcium 8.7, Calcium Adj for Albumin 9.3, Total Bilirubin 0.9, AST 18, ALT 24, Alkaline Phosphatase 80, Total Protein 7.6, Albumin 2.8 L, Lipase 870 H 02/07/21 06:10: WBC 11.2 H, RBC 3.96 L, Hgb 9.9 L, Hct 32.7 L, MCV 82.6, MCH 25.0 L, MCHC 30.3 L, RDW 12.1, Plt Count 427, MPV 10.0, Immature Gran % (Auto) 0.30, Immature Gran # (Auto) 0.03, Neutrophils % 82.0 H, Lymphocytes % 9.5 L, Monocytes % 7.3, Eosinophils % 0.6, Basophils % 0.3, Nucleated RBC % 0.0, Neutrophils # 9.2 H, Lymphocytes # 1.07 L, Monocytes # 0.8, Eosinophils # 0.1, Absolute Basophils 0.0 02/07/21 06:10: Sodium 135, Plasma Sodium 135, Potassium 3.8, Chloride 100, Carbon Dioxide 25.9, Anion Gap 12.9, BUN 4 L, Creatinine 0.82, Est GFR (Non-Af Amer) 131 H, BUN/Creatinine Ratio 4.9 L, Random Glucose 111 H D, Calcium 8.9, Calcium Adj for Albumin 9.7, Total Bilirubin 0.6, AST 14, ALT 26, Alkaline Phosphatase 71, Total Protein 7.4, Albumin 2.6 L, Lipase 667 H 02/08/21 06:20: WBC 10.0, RBC 3.86 L, Hgb 9.9 L, Hct 32.1 L, MCV 83.2, MCH 25.6 L, MCHC 30.8 L, RDW 12.2, Plt Count 428, MPV 10.5, Immature Gran % (Auto) 0.40, Immature Gran # (Auto) 0.04 H, Neutrophils % 75.3 H, Lymphocytes % 13.2 L, Monocytes % 9.9 H, Eosinophils % 0.8, Basophils % 0.4, Nucleated RBC % 0.0, Neutrophils # 7.5 H, Lymphocytes # 1.32 L, Monocytes # 1.0, Eosinophils # 0.1, Absolute Basophils 0.0 02/08/21 06:20: Sodium 136, Plasma Sodium 136, Potassium 3.6, Chloride 102, Carbon Dioxide 30.2, Anion Gap 7.4, BUN 4 L, Creatinine 0.87, Est GFR (Non-Af Amer) 123, BUN/Creatinine Ratio 4.6 L, Random Glucose 124 H, Calcium 8.8, Calcium Adj for Albumin 9.6, Total Bilirubin 0.8, AST 18, ALT 27, Alkaline Phosphatase 76, Total Protein 7.6, Albumin 2.6 L, Lipase 614 H 02/09/21 10:00: WBC 8.9, RBC 3.81 L, Hgb 9.6 L, Hct 31.3 L, MCV 82.2, MCH 25.2 L, MCHC 30.7 L, RDW 12.3, Plt Count 426, MPV 9.9, Immature Gran % (Auto) 0.30, Immature Gran # (Auto) 0.03, Neutrophils % 75.3 H, Lymphocytes % 13.7 L, Monocytes % 9.1 H, Eosinophils % 1.2, Basophils % 0.4, Nucleated RBC % 0.0, Neutrophils # 6.7 H, Lymphocytes # 1.22 L, Monocytes # 0.8, Eosinophils # 0.1, Absolute Basophils 0.0 02/09/21 10:00: Sodium 137, Plasma Sodium 138, Potassium 3.5, Chloride 102, Carbon Dioxide 28.4, Anion Gap 10.1, BUN 4 L, Creatinine 0.74, Est GFR (Non-Af Amer) 148 H D, BUN/Creatinine Ratio 5.4 L, Random Glucose 143 H, Calcium 8.8, Calcium Adj for Albumin 9.6, Total Bilirubin 0.8, AST 19, ALT 31, Alkaline Phosphatase 73, Total Protein 7.4, Albumin 2.6 L, Lipase 369 02/10/21 06:29: WBC 9.1, RBC 4.27 L, Hgb 10.6 L, Hct 35.1 L, MCV 82.2, MCH 24.8 L, MCHC 30.2 L, RDW 12.4, Plt Count 544 H, MPV 10.0, Immature Gran % (Auto) 0.30, Immature Gran # (Auto) 0.03, Neutrophils % 76.9 H, Lymphocytes % 12.8 L, Monocytes % 8.2, Eosinophils % 1.4, Basophils % 0.4, Nucleated RBC % 0.0, Neutrophils # 7.0 H, Lymphocytes # 1.17 L, Monocytes # 0.8, Eosinophils # 0.1, Absolute Basophils 0.0 02/10/21 06:29: Sodium 137, Plasma Sodium 138, Potassium 3.9, Chloride 100, Carbon Dioxide 27.7, Anion Gap 13.2, BUN 6, Creatinine 0.89, Est GFR (Non-Af Amer) 119, BUN/Creatinine Ratio 6.7 L, Random Glucose 133 H, Calcium 9.4, Calcium Adj for Albumin 9.9, Total Bilirubin 0.8, AST 25, ALT 40, Alkaline Ph osphatase 83, Total Protein 8.3 H, Albumin 3.0 L, Lipase 273 Discharge Location: Home Disposition: Home self-care Condition: Good Discharge Activity: Activity as tolerated Discharge Diet: Low fat/chol Referrals: [facility] [Non Staff Physicians] - (Follow up with PCP in 1-2 weeks or [facility] if unable to see PCP.) Problem Oriented Discharge Instructions to Patient/Family: Acute Pancreatitis, [id number] Additional Patient Instructions (free text): Please give the patient a work excuse from the day of ER visit to date of discharge. Ok to return to work Saturday without restrictions. Avoid fatty food and alcohol. Complete Home Medications List: Complete Home Medication List: Aspirin [Aspirin Enteric Coated] 325 mg PO DAILY 03/14/20 Acetaminophen [Tylenol] 1,000 mg PO Q6H PRN tablet 02/10/21 Forms: Patient Portal Registration
== END 2021-02-10 15:44 | disposition home or self-care (01) | DRG 439 ==
LOC: MS 17:05 → ER 17:05 → OBSVTOIN 20:25 → MS 21:00
PROVIDERS: ADMIT Family Medicine; ATTEND Family Medicine